=== PATIENT | female | born 1970 | race Caucasian/White ===

== ENCOUNTER 2017-10-14 10:45 | Emergency (ER) | payer BC ==
[2017-10-14 10:59] VITALS: BP 116/85; PULSE 117; TEMP 100; BMI 35.5
[2017-10-14] MEDS ORDERED: KETOROLAC TROMETHAMINE 30 MG/1 ML VIAL IVPUSH ONE (11:28)
[2017-10-14] MEDS ORDERED: SODIUM CHLORIDE 1,000 ML IV STA (11:28)
[2017-10-14] MEDS ORDERED: methylPREDNISolone NA SUCC 125 MG/2 ML VIAL IVPB ONE (11:30)
[2017-10-14] MEDS ORDERED: methylPREDNISolone NA SUCC 40 MG/1 ML VIAL ONE (11:38)
[2017-10-14] MEDS ORDERED: KETOROLAC TROMETHAMINE 30 MG/1 ML VIAL ONE (11:38)
--- NOTE | 2017-10-14 11:45 | PDOC ---
History of Present Illness - General Chief Complaint: Cold Symptoms Stated Complaint: sore throat,fever Time Seen by Provider: 10/14/17 11:08 - History of Present Illness Initial Comments: 10/14/17 11:45 Chief complaint: Sore throat History of present illness: Patient with a sore throat since Wednesday, begun on Z- Alhaji at that time by her primary physician, sore throat has worsened. Pain with eating, though she is tolerating by mouth food and fluids and taking her medication as directed. Saw Dr. Lozano this morning, ENT, who examined the patient and found no sign of peritonsillar or retropharyngeal abscess requiring drainage , referred to the ER for intravenous fluids and steroids. Review of systems: Low-grade fever, pain with swallowing, no drooling, noisy breathing, or shortness of breath. No nausea vomiting or diarrhea, no chest pain , shortness of breath, abdominal pain, no urinary tract symptoms or vaginal bleeding or discharge. Past medical history: Patient is a healthy female, no active medical or surgical problems, but with periodic tonsillitis usually responding well to antibiotics Social/family history no exposure to illness, but recently returned by plane from [place]. 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 No drooling, stridor, wheezing, or other sign of airway compromise HEENT: Mild pharyngeal erythema, no exudate swelling or mass. Neck supple with shotty lymphadenopathy bilaterally, mildly tender Lungs clear CV regular without murmur rub or gallop Abdomen benign Skin clear, no rash, adequate turgor and wet mucous membranes Neurological intact Extremities no CCE Impression: Pharyngitis, probably viral, probably worsened by antibiotics no sign of mass or abscess, no airway compromise Plan: Intravenous fluids, anti-inflammatories, steroids, and observation with further evaluation. Past History - Past Medical History Allergies/Adverse Reactions: Allergies Allergy/AdvReac Type Severity Reaction Status Date / Time No Known Allergies Allergy Verified 10/14/17 10:48 Home Medications: Ambulatory Orders Azithromycin [Zithromax 250mg Tablets -] 250 mg PO DAILY 10/14/17 Ibuprofen 800 mg PO TID #15 tablet 10/14/17 predniSONE [Deltasone -] 40 mg PO DAILY #6 tablet 10/14/17 COPD: No Thyroid Disease: No - Immunization History Td Vaccination: Yes - Suicide/Smoking/Psychosocial Hx Smoking Status: No Smoking History: Never smoked Number of Cigarettes Smoked Daily: 0 Cigars Per Day: 0 Hx Alcohol Use: No Drug/Substance Use Hx: No Substance Use Type: None Hx Substance Use Treatment: No Respiratory Specific PMHX - Complaint Specific PMHX Angina: No *Physical Exam - Vital Signs Last Vital Signs Temp Pulse Resp BP Pulse Ox 100 F H 117 H 18 116/85 99 10/14/17 10:47 10/14/17 10:47 10/14/17 10:47 10/14/17 10:47 10/14/17 10:47 Medical Decision Making - Medical Decision Making 10/14/17 13:21 Patient is much improved. Pain has subsided considerably. She states that she can swallow without difficulty. No respiratory difficulties, drooling, stridor, or wheezing. Discharged fully ambulatory in no pain or other distress to follow- up as directed. *DC/Admit/Observation/Transfer Diagnosis at time of Disposition: Pharyngitis Qualifiers: Pharyngitis/tonsillitis etiology: unspecified etiology Qualified Code(s): J02.9 - Acute pharyngitis, unspecified - Discharge Dispostion Disposition: HOME Condition at time of disposition: Improved Admit: No - Prescriptions Prescriptions: Ibuprofen 800 mg PO TID #15 tablet predniSONE [Deltasone -] 40 mg PO DAILY #6 tablet - Referrals - Patient Instructions Printed Discharge Instructions: DI for Pharyngitis/Tonsillopharyngitis -- Adult Additional Instructions: Finish antibiotics as directed Return to ER immediately if you have increased difficulty swallowing or breathing Otherwise follow-up with your primary physician and ENT doctor. - Post Discharge Activity Forms/Work/School Notes: Back to Work
== END 2017-10-14 13:20 | disposition home or self-care (01) ==
LOC: FER 10:45
PROC: 3E0333Z Introduction of Anti-inflammatory into Peripheral Vein, Percutaneous Approach (ICD-10-PCS; principal; 2017-10-14)
PROC: 3E033GC Introduction of Other Therapeutic Substance into Peripheral Vein, Percutaneous Approach (ICD-10-PCS; 2017-10-14)
PROC: 3E0337Z Introduction of Electrolytic and Water Balance Substance into Peripheral Vein, Percutaneous Approach (ICD-10-PCS; 2017-10-14)
DX: J02.9 Acute pharyngitis, unspecified (principal)
CPT/HCPCS: 99281-25; J7030

== ENCOUNTER 2018-03-19 13:36 | Emergency (ER) | payer BC ==
[2018-03-19 13:40] VITALS: BP 145/74; PULSE 88; TEMP 97.8; BMI 30.7
--- NOTE | 2018-03-19 13:50 | PDOC ---
History of Present Illness - General Chief Complaint: Abscess Boil Stated Complaint: PCP SENT Time Seen by Provider: 03/19/18 13:42 History Source: Patient Exam Limitations: No Limitations - History of Present Illness Initial Comments: 03/19/18 14:07 47-year-old female with no past medical history, including diabetes, presents to emergency department for abscess since Wednesday. She states it did not start as a pimple. She denies fevers, chills, nausea, vomiting, lightheadedness, generalized weakness, chest pain, shortness of breath, discharge from the wound , foul smelling wound. She states that it has not popped or drained fluid. She had something similar x3 months ago, I&D was performed. Allergies - NKDA Past History - Past Medical History Allergies/Adverse Reactions: Allergies Allergy/AdvReac Type Severity Reaction Status Date / Time No Known Allergies Allergy Verified 03/19/18 13:37 Home Medications: Ambulatory Orders Clindamycin [Cleocin -] 450 mg PO Q8H #63 capsule 03/19/18 Clindamycin [Cleocin -] 450 mg PO Q8H #63 capsule 03/19/18 COPD: No Thyroid Disease: No - Immunization History Td Vaccination: Yes - Suicide/Smoking/Psychosocial Hx Smoking Status: No Smoking History: Never smoked Number of Cigarettes Smoked Daily: 0 Cigars Per Day: 0 Hx Alcohol Use: No Drug/Substance Use Hx: No Substance Use Type: None Hx Substance Use Treatment: No Review of Systems - Review of Systems Able to Perform ROS?: Yes Comments:: 03/19/18 14:08 General: denies fever, chills, night sweats, generalized weakness. HEENT: denies sore throat, rhinorrhea, ear pain. Heart: denies chest pain, palpitations, syncope, lower extremity swelling, diaphoresis. Respiratory: denies shortness of breath, cough, sputum production, hemoptysis. Abdomen: denies abdominal pain, nausea, vomiting, diarrhea, constipation, blood in stool. : denies dysuria, increased urinary frequency, hematuria, urinary incontinence , flank pain. Back: denies back pain. Musculoskeletal: denies joint pain, muscle pain, joint swelling. Neurological: denies headache, dizziness, numbness, tingling, weakness. Skin: admits to abscess. denies rash, laceration, abrasion. *Physical Exam - Vital Signs Last Vital Signs Temp Pulse Resp BP Pulse Ox 97.8 F 88 18 145/74 100 03/19/18 13:37 03/19/18 13:37 03/19/18 13:37 03/19/18 13:37 03/19/18 13:37 - Physical Exam Comments: 03/19/18 14:08 Constitutional: Well-nourished, Well-developed, appearing stated age. HEENT: head is normocephalic, atraumatic. EOMI. PERRLA. Neck: supple. Full ROM. Heart: regular rhythm. no murmurs, rubs or gallops. Lungs: clear to auscultation bilaterally. no crackles, rhonchi or wheezing. no stridor. Abdomen: soft, nontender. normal bowel sounds. no rebound, guarding, masses. Extremities: Peripheral pulses intact. No lower extremity edema. Neurological: CN 2-12 grossly intact. Moves all four extremities. Psych: awake, alert, oriented x3. Follows commands. Answers questions appropriately. Skin: 2x2 cm abscess noted to RUQ. 5x6 cm surrounding erythema present. indurated. Ultrasound examination - 1.7x0.76 cm fluid collection noted. Procedures - Incision and Drainage I&D Site: Right: Abdomen Betadine cleansed: Yes Anesthesia: 2% Lidocaine w/ Epi Volume(ml): 2 Blade Size: 11 Attempts: 1 Iodinated Packin in Complications: none Dressing: Yes Medical Decision Making - Medical Decision Making 03/19/18 14:09 47-year-old female with no past medical history, including diabetes, presents to emergency department for abscess since Wednesday. She states he did not start as a pimple. She denies fevers, chills, nausea, vomiting, lightheadedness, generalized weakness, Madhavi, shortness of breath, discharge on the one side, found smiling. She states that it has not popped or drained fluid. She had something similar x3 months ago, I&D was performed. Initial Vital Signs Temp Pulse Resp BP Pulse Ox 97.8 F 88 18 145/74 100 03/19/18 13:37 03/19/18 13:37 03/19/18 13:37 03/19/18 13:37 03/19/18 13:37 Afebrile. No tachycardia. No tachypnea. Mild hypertension. No hypoxia on room air. US examination revealed fluid collection. Will use local anesthetic and I&D. First dose Clindamycin ordered here. 03/19/18 15:13 I&D performed without difficulty. Packing placed. Dressing applied over top. Refer to above for procedural note. Pt will be discharged with prescription for Clindamycin. I spoke with the patient about the importance of taking all of her antibiotic doses, with which she stated she understood. I spoke with the patient about the importance of following up in 3-4 days to be re-evaluated either here at the Emergency Department, or at her PCP's office, Dr. Miles. She stated she understood. I discussed return precautions with the patient, with which she stated she understood. *DC/Admit/Observation/Transfer Diagnosis at time of Disposition: Abscess - Discharge Dispostion Disposition: HOME Condition at time of disposition: Stable Decision to Admit order: No - Prescriptions Prescriptions: Clindamycin [Cleocin -] 450 mg PO Q8H #63 capsule Clindamycin [Cleocin -] 450 mg PO Q8H #63 capsule - Referrals Referrals: Aisha Miles MD [Primary Care Provider] - - Patient Instructions Printed Discharge Instructions: DI for Wound Infection, DI for Incision and Drainage Additional Instructions: You were seen today for abscess. An Incision and Drainage was performed with gauze packing applied inside the wound. Leave the gauze inside the wound until you are re-evaluated. Do not get the wound wet. You received the first dose of the antibiotic, Clindamycin, here in the Emergency Department. I have sent the rest of the prescription to your pharmacy, take as instructed by the label. Take a probiotic over the counter to avoid antibiotic associated diarrhea. Drink lots of clear fluids, like water or gatorade, to stay hydrated. Return to the Emergency Department or see Dr. Miles for re-evaluation of the wound in 3-4 days. Follow up with your primary care doctor within 5 days. Call their office on Wednesday since Wednesday is a holiday, and make an appointment for as soon as available. Your care is not complete until you follow up. Return to the Emergency Department sooner than 3 days for increasing redness, increasing size of wound, fevers, chills, nausea, vomiting, lightheadedness, feeling weak or any other new, worsening or concerning symptoms. - Post Discharge Activity
--- NOTE | 2018-03-19 13:57 | PDOC ---
Attending Attestation - HPI HPI: 03/19/18 14:44 The patient is a 47-year-old female present to the emergency department with an abscess. The patient presents with an abscess localized to the right upper abdomen, non-draining, non-odorous. The patient states this is the 3rd presentation, she had one on her right breast and another one on foot, both abscesses were IND but never cultured. Denies fever, chills, bloody discharge, or paresthesia. Allergies: NKA PCP: Dr. Mlies. - Physicial Exam PE: 03/19/18 14:44 GENERAL: Nontoxic appearing. Awake, alert, and fully oriented, in no acute distress HEAD: No signs of trauma EYES: PERRLA, EOMI, sclera anicteric, conjunctiva clear ENT: Auricles normal inspection, hearing grossly normal, nares patent, oropharynx clear without exudates. Moist mucosa NECK: Normal ROM, supple, no lymphadenopathy, JVD, or masses LUNGS: Breath sounds equal, clear to auscultation bilaterally. No wheezes, and no crackles HEART: Regular rate and rhythm, normal S1 and S2, no murmurs, rubs or gallops ABDOMEN: (+) right upper abdomen abscess, Fluctuant with surrounding erythema, induration surrounding, hot to touch, no draining, will need IND. Soft, nontender, normoactive bowel sounds. No guarding, no rebound. EXTREMITIES: Normal range of motion, no edema. No clubbing or cyanosis. No cords, erythema, or tenderness NEUROLOGICAL: Cranial nerves II through XII grossly intact. Normal speech, normal gait SKIN: Warm, Dry, normal turgor, no rashes or lesions noted. - Medical Decision Making 03/19/18 14:51 Documentation prepared by Jessica Quiñones, acting as medical director occupational health for Bhavani Shine DO. <Jessica Quiñones - Last Filed: 03/19/18 14:51> - Resident Resident Name: Estephania Messer - ED Attending Attestation I have performed the following: I have examined & evaluated the patient, The case was reviewed & discussed with the resident, I agree w/resident's findings & plan, Exceptions are as noted - Medical Decision Making 03/19/18 13:57 I, Dr. Bhavani Shine DO, attest that this document has been prepared under my direction and personally reviewed by me in its entirety. I further attest, that it accurately reflects all work, treatment, procedures and medical decision -making performed by me. 03/19/18 14:36 a/p: 47yo female with abscess to R upper quad -superificial -bedside ultrasound measures 1.7x0.7cm -irreg border -3rd abscess in last year (prior to R breast and then to top of foot) -will need I&D -has surrounding erythema, will send wound culture, will pack wound, will place on clindamycin -Dr. Miles brought pt to ER -pt states ok to discuss case with Dr. Miles - she will follow up with him as an outpt -discussed the plan with Dr. Miles who agrees with the plan 03/19/18 15:10 I&D performed by the resident with packing placed, purulent drainage will send wound culture and start abx stable for d/c to home and follow up with Dr. Miles <Bhavani Shine - Last Filed: 03/19/18 15:11> Discharge Disposition - Discharge Dispostion Decision to Admit order: No <Bhavani Shine - Last Filed: 03/19/18 15:11> - Diagnosis Abscess - Discharge Dispostion Disposition: HOME Condition at time of disposition: Stable - Prescriptions Prescriptions: Clindamycin [Cleocin -] 450 mg PO Q8H #63 capsule - Referrals Referrals: Aisha Miles MD [Primary Care Provider] - - Patient Instructions Printed Discharge Instructions: DI for Wound Infection, DI for Incision and Drainage Additional Instructions: You were seen today for abscess. An Incision and Drainage was performed with gauze packing applied inside the wound. Leave the gauze inside the wound until you are re-evaluated. You recieved the first dose of the antibiotic, Clindamycin, here in the Emergency Department. I have sent the rest of the prescription to your pharmacy, take as instructed by the label. Take a probiotic over the counter to avoid antibiotic associated diarrhea. Drink lots of clear fluids, like water or gatorade, to stay hydrated. Return to the Emergency Department for re-evaluation of the wound in 3 days. Follow up with your primary care doctor within 5 days. Call their office on Wednesday since Wednesday is a holiday, and make an appointment for as soon as available. Your care is not complete until you follow up. Return to the Emergency Department sooner than 3 days for increasing redness, increasing size of wound, fevers, chills, nausea, vomiting, lightheadedness, feeling weak or any other new, worsening or concerning symptoms. - Post Discharge Activity
[2018-03-19] MEDS ORDERED: LIDOCAINE HCL 2% (50ML VIAL) SQ ONE (14:13)
[2018-03-19] MEDS ORDERED: LIDOCAINE 1%/EPI 1:100000 (20 ML MULTI DOSE VIAL) IJ ONE (14:17)
[2018-03-19] MEDS ORDERED: LIDOCAINE 1%/EPI 1:100000 (20 ML MULTI DOSE VIAL) ONE (14:30)
[2018-03-19] MEDS ORDERED: CLINDAMYCIN HCL 150 MG CAPSULE (FP) PO ONE (14:33)
[2018-03-19] MEDS ORDERED: CLINDAMYCIN HCL 150 MG CAPSULE (FP) ONE (14:36)
== END 2018-03-19 15:16 | disposition home or self-care (01) ==
LOC: JER 13:36
PROC: 0J980ZZ Drainage of Abdomen Subcutaneous Tissue and Fascia, Open Approach (ICD-10-PCS; principal; 2018-03-19)
DX: L02.211 Cutaneous abscess of abdominal wall (principal)
CPT/HCPCS: 99282-25

== ENCOUNTER 2018-12-16 01:31 | Inpatient (IN) | payer BC ==
--- NOTE | 2018-12-16 01:43 | PDOC ---
History of Present Illness - General Chief Complaint: Pain Stated Complaint: ABD/BACK PAIN Time Seen by Provider: 12/16/18 01:37 History Source: Patient Exam Limitations: No Limitations - History of Present Illness Initial Comments: 12/16/18 01:58 This is a 48-year-old female who comes in complaining of right flank pain radiating to her right groin times several days. Patient said it is worse today. Patient says some associated nausea and she did vomit times one. Patient said that she went to an urgent care center for the pain a week ago and was told she had a urinary tract infection took antibiotics for UTI. Patient said the pain is intermittent. Patient denies history of similar pain in the past prior to this recent set about solids. Patient denies any fever, chills, diarrhea. Patient said she does have a history of constipation but did have a bowel movement today. Allergies: as per nursing notes Past Medical History: none Social history: Lives with family. No smoking. No alcohol. No illicit drugs. Surgical history: None General: No fevers or chills, no weakness, no weight loss HEENT: No change in vision. No sore throat,. No ear pain CardioVascular: no chest discomfort. No shortness of breath Respiratory:No cough, or wheezing. Gastrointestinal: + nausea, + vomiting, no diarrhea + constipation, No rectal bleeding Genitourinary: No dysuria, hematuria, or frequency Musculoskeletal: No joint or muscle pain or swelling Neurologic: No headache, vertigo, dizziness or loss of consciousness Psychiatric: nor depression Skin: No rashes or easy bruising Endocrine: no increased thirst or abnormal weight change Allergic: no skin or latex allergy All other systems reviewed and normal Exam: General: Well-nourished well-developed individual, no acute distress HEENT: Throat: Normal, tonsils normal, no erythema or exudate Neck: Supple, no meningeal signs, no lymphadenopathy Eyes::Pupils equal reactive and round, extraocular motion intact Chest: Nontender to palpation Cardiac: S1-S2 normal, regular rate and rhythm, no murmurs rubs or gallops Respiratory: Lungs clear to auscultation bilateral Abdomen: Soft, nondistended, normal bowel sounds, there is mild tenderness on palpation right flank and right lower quadrant there is no guarding or rebound. Extremities: Warm, dry, no cyanosis, clubbing, or edema Skin: No rashes Neuro: Alert and oriented x3, CN II - XII intact, nonfocal exam with normal strength, normal sensation, normal reflexes, normal gait, Psych: Normal mood and affect Assessment and plan: This is a 48-year-old female comes in complaining of right flank pain. Workup initiated for probable renal colic including CBC, comp, fluids, pain meds and CAT scan. 12/16/18 03:38 Patient's CAT scan was positive for acute appendicitis. Patient will be admitted under the hospitalist service and likely transfer to [facility] for her appendix Past History - Past Medical History Allergies/Adverse Reactions: Allergies Allergy/AdvReac Type Severity Reaction Status Date / Time No Known Allergies Allergy Verified 03/19/18 13:37 Home Medications: Ambulatory Orders Phentermine HCl 15 mg PO BID 12/16/18 COPD: No Thyroid Disease: No Other medical history: OBESE - Immunization History Td Vaccination: Yes - Suicide/Smoking/Psychosocial Hx Smoking Status: No Smoking History: Never smoked Number of Cigarettes Smoked Daily: 0 Cigars Per Day: 0 Hx Alcohol Use: No Drug/Substance Use Hx: No Substance Use Type: None Hx Substance Use Treatment: No Abd/GI Specific PMHX - Complaint Specific PMHX GERD: No GI Ulcer Disease: No *Physical Exam - Vital Signs Last Vital Signs Temp Pulse Resp BP Pulse Ox 97.7 F 68 16 109/66 100 12/16/18 01:34 12/16/18 01:34 12/16/18 01:34 12/16/18 01:34 12/16/18 01:34 ED Treatment Course - LABORATORY CBC & Chemistry Diagram: 12/16/18 01:56 12/16/18 01:56 *DC/Admit/Observation/Transfer Diagnosis at time of Disposition: Appendicitis Qualifiers: Appendicitis type: acute appendicitis Acute appendicitis type: unspecified acute appendicitis type Qualified Code(s): K35.80 - Unspecified acute appendicitis - Discharge Dispostion Condition at time of disposition: Stable Decision to Admit order: Yes - Referrals - Patient Instructions - Post Discharge Activity
[2018-12-16] MEDS ORDERED: SODIUM CHLORIDE 1,000 ML IV ONE (01:57)
[2018-12-16] MEDS ORDERED: morphine CARPU-JECT 2 MG/1 ML DISP.SYRIN IVPUSH ONE (01:57)
[2018-12-16] MEDS ORDERED: KETOROLAC TROMETHAMINE 30 MG/1 ML VIAL IVPUSH ONE (01:57)
[2018-12-16] MEDS ORDERED: KETOROLAC TROMETHAMINE 30 MG/1 ML VIAL ONE (02:03)
[2018-12-16] MEDS ORDERED: morphine SULFATE 4 MG/ML VIAL ONE (02:37)
[2018-12-16 02:52] LABS: BASO % 0.2 % (0-2.0); EOS % 0.2 % (0-4.5); HEMATOCRIT 39.7 % (32.4-45.2); HEMOGLOBIN 12.3 GM/dL (10.7-15.3); LYMPH % 10.4 % (8-40); MCH 20.5 pg (25.7-33.7); MEAN PLT VOLUME 7.8 fl (7.5-11.1); MONO % 4.6 % (3.8-10.2); NEUT % 84.6 % (42.8-82.8); PLATELET COUNT 398 K/MM3 (134-434); RBC 6.01 M/mm3 (3.60-5.2); RDW 19.1 % (11.6-15.6)
[2018-12-16 02:56] LABS: EPI CELLS 4.5 /HPF (0-5/HPF); HYALINE CASTS 9 /lpf (0-8); URINE APPEARANCE CLEAR; URINE BACTERIA 81.1 /hpf (NEGATIVE); URINE BILIRUBIN NEGATIVE (NEGATIVE); URINE COLOR YELLOW; URINE GLUCOSE (UA) NEGATIVE (NEGATIVE); URINE KETONE 1+ (NEGATIVE); URINE LEUK ESTERASE TRACE (NEGATIVE); URINE NITRITE NEGATIVE (NEGATIVE); URINE PROTEIN NEGATIVE (NEGATIVE); URINE WBC 4 /hpf (0-5)
[2018-12-16 03:36] LABS: ALBUMIN 3.6 g/dl (3.4-5.0); BILIRUBIN,TOTAL 0.4 mg/dL (0.2-1); BLOOD UREA NITROGEN 11.2 mg/dL (7-18); CALCIUM 8.8 mg/dL (8.5-10.1); CREATININE 0.7 mg/dL (0.55-1.3); POTASSIUM 3.8 mmol/L (3.5-5.1); TOT PROT 7.6 g/dl (6.4-8.2)
[2018-12-16] MEDS ORDERED: PIPERACILLIN/TAZOBACTAM 4.5 GM VIAL IVPB ONE (03:40)
[2018-12-16] MEDS ORDERED: PIPERACILLIN/TAZOB 4.5 GM 4.5 GM in DEXTROSE 5%-WATER 100 ML IVPB ONE (03:48)
[2018-12-16 05:43] LABS: ANISOCYTOSIS 1+
--- NOTE | 2018-12-16 09:59 | CONSULT ---
Consult Consult Specialty:: General Surgery Reason for Consultation:: Acute on Chronic Appendicitis - History of Present Illness Chief Complaint: abdominal pain History of Present Illness: 48 yo female with PMH chronic constipation, obesity on pharmacologic weight loss therapy presented to [facility] reporting over the past 3 weeks she has been experiencing worsening, constant lower abdominal pain accompanied with fevers ( tmax 100F), chills, and constipation. She was seen in her PMDs office 2 weeks ago. She has been constipated with RLQ abdominal pain since then which she attributed to contipation. She had one episode of vomiting yesterday. Pain radiates to her lower back. Abdominal CT scan consistent with acute appendicitis with a fecalith with no abscess or rupture. We were called to assess. - History Source History Provided By: Patient, Medical Record Limitations to Obtaining History: No Limitations - Past Medical History Gastrointestinal: Yes: Constipation ...: No Endocrine: Yes: Other (ADRENAL ADENOMA) Additional Medical History: OBESITY - Alcohol/Substance Use Hx Alcohol Use: No History of Substance Use: reports: None - Smoking History Smoking history: Never smoked Have you smoked in the past 12 months: No Aproximately how many cigarettes per day: 0 - Social History ADL: Independent History of Recent Travel: No Home Medications - Allergies Allergies/Adverse Reactions: Allergies Allergy/AdvReac Type Severity Reaction Status Date / Time Penicillins Allergy Mild Itching Verified 12/16/18 11:39 - Home Medications Home Medications: Ambulatory Orders Phentermine HCl 15 mg PO BID 12/16/18 Review of Systems - Review of Systems Constitutional: reports: Loss of Appetite. denies: Chills, Fever Eyes: denies: Blind Spots, Recent Change in Vision HENT: denies: Difficult Swallowing, Throat Pain Neck: denies: Pain on Movement, Stiffness Cardiovascular: denies: Chest Pain, Palpitations Respiratory: denies: Cough, SOB Gastrointestinal: reports: Abdominal Pain, Constipation Genitourinary: denies: Discharge, Dysuria, Flank Pain Breasts: reports: No Symptoms Reported. denies: Pain Musculoskeletal: denies: Muscle Pain, Muscle Weakness Integumentary: denies: Rash, Wound Neurological: denies: Seizure, Syncope Endocrine: reports: Excessive Sweating. denies: Unexplained Weight Gain, Unexplained Weight Loss Hematology/Lymphatic: denies: Easily Bruised, Excessive Bleeding Psychiatric: denies: Anxiety, Depression Physical Exam Vital Signs: Vital Signs Temperature 99.3 F 12/16/18 09:56 Pulse Rate 110 H 12/16/18 09:56 Respiratory Rate 18 12/16/18 08:11 Blood Pressure 115/59 L 12/16/18 08:11 O2 Sat by Pulse Oximetry (%) 98 12/16/18 08:46 Constitutional: Yes: Well Nourished, No Distress, Calm, Obese Eyes: Yes: Conjunctiva Clear, EOM Intact HENT: Yes: Atraumatic, Normocephalic Neck: Yes: Supple, Trachea Midline Cardiovascular: Yes: Regular Rate and Rhythm, S1, S2 Respiratory: Yes: Regular, CTA Bilaterally Gastrointestinal: Yes: Normal Bowel Sounds, Soft, Abdomen, Obese, Tenderness ( rlq), Tenderness, Rebound (+psoaS). No: Distention, Palpable Mass, Rectal Bleeding ...Rectal Exam: Yes: Sphincter Tone Normal. No: Erythema, Hemorrhoids/External , Mass Renal/: No: CVA Tenderness - Left, CVA Tenderness - Right Breast(s): No: Dimpling, Mass, Skin Changes Musculoskeletal: No: Muscle Pain, Muscle Weakness Extremities: No: Cool, Cyanosis Edema: No Peripheral Pulses WNL: Yes Integumentary: No: Jaundice, Rash Neurological: Yes: Alert, Oriented Psychiatric: Yes: Alert, Oriented Labs: CBC, BMP 12/16/18 01:56 12/16/18 01:56 Imaging - Results Cat Scan: Report Reviewed, Image Reviewed (appendicitis with fecolith) Problem List - Problems (1) Appendicitis Assessment/Plan: 48yo female with some medical history presented with acute on chronic appendicitis, confirmed on a CTscan of the abdomen Medical admission NPO and IVF hydration IV antibiotics Adequate analgesia Discussed with patient risks, benefits and alternatives of laparoscopic possible open appendectomy, including but not limited to bleeding, infection, injury to adjacent structures, leak or injury, intraabdominal abscess, incisional hernia, need for further procedures, ; alternatives include antibiotics, delayed or no surgery - risks of this include failure of nonoperative therapy, perforation, sepsis, recurrence, . Patient desires to proceed with operation - will take to OR for above. Informed consent signed for same. Thank you for the opportunity to participate in the care of this patient. Code(s): K37 - UNSPECIFIED APPENDICITIS Qualifiers: Appendicitis type: acute appendicitis Acute appendicitis type: unspecified acute appendicitis type Qualified Code(s): K35.80 - Unspecified acute appendicitis (2) Obesity (BMI 30.0-34.9) Code(s): E66.9 - OBESITY, UNSPECIFIED (3) Constipation Code(s): K59.00 - CONSTIPATION, UNSPECIFIED Qualifiers: Constipation type: chronic idiopathic constipation Qualified Code(s): K59.04 - Chronic idiopathic constipation (4) Leukocytosis Code(s): D72.829 - ELEVATED WHITE BLOOD CELL COUNT, UNSPECIFIED Qualifiers: Leukocytosis type: bandemia Qualified Code(s): D72.825 - Bandemia (5) RLQ abdominal tenderness Code(s): R10.813 - RIGHT LOWER QUADRANT ABDOMINAL TENDERNESS Qualifiers: Presence of rebound: present Qualified Code(s): R10.823 - Right lower quadrant rebound abdominal tenderness (6) Abdominal pain in female patient Code(s): R10.9 - UNSPECIFIED ABDOMINAL PAIN (7) Adrenal adenoma Code(s): D35.00 - BENIGN NEOPLASM OF UNSPECIFIED ADRENAL GLAND Qualifiers: Laterality: left Qualified Code(s): D35.02 - Benign neoplasm of left adrenal gland
--- NOTE | 2018-12-16 10:29 | HP ---
Admitting History and Physical - Primary Care Physician PCP: Aisha Miles - Admission Chief Complaint: Lower abdominal pain History of Present Illness: Patient is a 48 y/o female with no significant past medical history. Patient states that over the past 3 weeks she has been experiencing worsening, constant lower abdominal pain accompanied with fevers (tmax 100F), chills, and constipation. She had one episode of vomiting yesterday. Pain radiates to her lower back. Abdominal CT scan consistent with acute appendicitis with no abscess or rupture. History Source: Patient Limitations to Obtaining History: No Limitations - Past Medical History ...: No - Past Surgical History Past Surgical History: Yes: None - Smoking History Smoking history: Never smoked Have you smoked in the past 12 months: No Aproximately how many cigarettes per day: 0 - Alcohol/Substance Use Hx Alcohol Use: No - Social History ADL: Independent History of Recent Travel: No Home Medications - Allergies Allergies/Adverse Reactions: Allergies Allergy/AdvReac Type Severity Reaction Status Date / Time No Known Allergies Allergy Verified 03/19/18 13:37 - Home Medications Home Medications: Ambulatory Orders Phentermine HCl 15 mg PO BID 12/16/18 Review of Systems - Review of Systems Constitutional: reports: Weakness Eyes: reports: No Symptoms HENT: reports: No Symptoms Neck: reports: No Symptoms Cardiovascular: reports: No Symptoms Respiratory: reports: No Symptoms Gastrointestinal: reports: Abdominal Pain, Constipation Genitourinary: reports: No Symptoms Breasts: reports: No Symptoms Reported Musculoskeletal: reports: Back Pain Integumentary: reports: No Symptoms Neurological: reports: No Symptoms Endocrine: reports: No Symptoms Hematology/Lymphatic: reports: No Symptoms Psychiatric: reports: No Symptoms Physical Examination Vital Signs: Vital Signs Temperature 99.3 F 12/16/18 09:56 Pulse Rate 110 H 12/16/18 09:56 Respiratory Rate 18 12/16/18 08:11 Blood Pressure 115/59 L 12/16/18 08:11 O2 Sat by Pulse Oximetry (%) 98 12/16/18 08:46 Constitutional: Yes: No Distress, Calm Eyes: Yes: Conjunctiva Clear HENT: Yes: Atraumatic Cardiovascular: Yes: Tachycardia Respiratory: Yes: Regular, CTA Bilaterally Gastrointestinal: Yes: Normal Bowel Sounds, Soft, Tenderness (diffuse) Musculoskeletal: Yes: WNL Extremities: Yes: WNL Edema: No Neurological: Yes: Alert, Oriented Psychiatric: Yes: Alert, Oriented Labs: CBC, BMP 12/16/18 01:56 12/16/18 01:56 Imaging - Results Cat Scan: Report Reviewed Problem List - Problems (1) Adrenal adenoma Assessment/Plan: -renal consult -CT scan shows left adrenal adenoma 1.6 x 1.1cm Code(s): D35.00 - BENIGN NEOPLASM OF UNSPECIFIED ADRENAL GLAND (2) Appendicitis Assessment/Plan: -Surgery on board -NPO for surgery this afternoon -Leukocytosis WBC 22.0 -ID on board -received Zosyn x 1 dose -IV hydration Code(s): K37 - UNSPECIFIED APPENDICITIS Qualifiers: Appendicitis type: acute appendicitis Acute appendicitis type: unspecified acute appendicitis type Qualified Code(s): K35.80 - Unspecified acute appendicitis Assessment/Plan see problem list SCDs
[2018-12-16] MEDS ORDERED: ACETAMINOPHEN 325 MG TABLET (FP) PO PRN ×2 (10:54→15:43)
[2018-12-16] MEDS ORDERED: MORPHINE SULFATE 2 MG/ML VIAL IVPUSH PRN (11:31)
--- NOTE | 2018-12-16 11:38 | CON.ID ---
Consult Consult Specialty:: infectious disease Referred by:: dr fuentes Reason for Consultation:: appendicitis - History of Present Illness Chief Complaint: abdominal pain History of Present Illness: 48 yo female admitted with worsening abdominal pain over the last several weeks she thought she had kidney stones and was trying to drink more fluids no dysuria no hematuria yesterday and nsuea and vomiting today seen in ED ct scan with evidence of appendicits no fevers prior to last night pen allergy - itchy - History Source History Provided By: Patient, Medical Record Limitations to Obtaining History: No Limitations - Past Medical History Gastrointestinal: Yes: Constipation ...: No Endocrine: Yes: Other (ADRENAL ADENOMA) Additional Medical History: OBESITY - Past Surgical History Past Surgical History: Yes: None - Alcohol/Substance Use Hx Alcohol Use: No History of Substance Use: reports: None - Smoking History Smoking history: Never smoked Have you smoked in the past 12 months: No Aproximately how many cigarettes per day: 0 - Social History Usual Living Arrangement: With Spouse ADL: Independent History of Recent Travel: Yes ([place]) Home Medications - Allergies Allergies/Adverse Reactions: Allergies Allergy/AdvReac Type Severity Reaction Status Date / Time Penicillins Allergy Mild Itching Verified 12/16/18 11:39 - Home Medications Home Medications: Ambulatory Orders Phentermine HCl 15 mg PO BID 12/16/18 Acetaminophen [Tylenol .Regular Strength -] 650 mg PO Q6H PRN tablet 12/19/18 Amox-Tr/K Cl [Augmentin - 500Mg Tablet] 1 tab PO BID #14 tab 12/19/18 Docusate Sodium [Colace -] 100 mg PO TID PRN #60 capsule 12/19/18 metroNIDAZOLE [Flagyl -] 500 mg PO TID #21 tablet 12/19/18 Family Disease History - Family Disease History Family History: Denies Review of Systems - Review of Systems Constitutional: reports: Chills, Fever Eyes: reports: No Symptoms HENT: reports: No Symptoms Neck: reports: No Symptoms Cardiovascular: reports: No Symptoms Respiratory: reports: No Symptoms Gastrointestinal: reports: Nausea, Vomiting. denies: Abdominal Pain Genitourinary: denies: Burning, Discharge Musculoskeletal: reports: No Symptoms Integumentary: reports: No Symptoms Neurological: reports: No Symptoms Physical Exam Vital Signs: Vital Signs Temperature 99.3 F 12/16/18 09:56 Pulse Rate 110 H 12/16/18 09:56 Respiratory Rate 18 12/16/18 08:11 Blood Pressure 115/59 L 12/16/18 08:11 O2 Sat by Pulse Oximetry (%) 98 12/16/18 08:46 Constitutional: Yes: Well Nourished, No Distress Eyes: Yes: Conjunctiva Clear HENT: Yes: Atraumatic, Normocephalic. No: Thrush Neck: Yes: Supple Cardiovascular: Yes: Regular Rate and Rhythm Respiratory: Yes: Regular, Diminished Gastrointestinal: Yes: Normal Bowel Sounds, Soft, Tenderness (RLQ) ...Rectal Exam: Yes: Deferred Renal/: No: CVA Tenderness - Left, CVA Tenderness - Right Musculoskeletal: Yes: WNL Extremities: Yes: WNL Edema: No Psychiatric: Yes: Alert, Oriented Labs: CBC, BMP 12/16/18 01:56 12/16/18 01:56 Imaging - Results Chest X-ray: Report Reviewed Cat Scan: Report Reviewed Problem List - Problems (1) Appendicitis Code(s): K37 - UNSPECIFIED APPENDICITIS Qualifiers: Appendicitis type: acute appendicitis Acute appendicitis type: unspecified acute appendicitis type Qualified Code(s): K35.80 - Unspecified acute appendicitis (2) Leukocytosis Code(s): D72.829 - ELEVATED WHITE BLOOD CELL COUNT, UNSPECIFIED Qualifiers: Leukocytosis type: bandemia Qualified Code(s): D72.825 - Bandemia (3) Penicillin allergy Code(s): Z88.0 - ALLERGY STATUS TO PENICILLIN Assessment/Plan for surgery today would treat with rocephin/flagyl as she is penicillin allergic (itching)
[2018-12-16] MEDS ORDERED: CEFTRIAXONE 2 GM in DEXTROSE 5%-WATER 100 ML IVPB SCH (11:45)
[2018-12-16] MEDS ORDERED: SODIUM CHLORIDE 1,000 ML IV SCH ×2 (11:45→15:43)
[2018-12-16] MEDS ORDERED: DEXTROSE 5%-WATER 100 ML IVPB ONE (12:54)
[2018-12-16 13:24] LABS: URINE RBC 5 /hpf (0-4)
[2018-12-16] MEDS ORDERED: fentaNYL CITRATE 250 MCG/5 ML VIAL ONE (13:50)
--- NOTE | 2018-12-16 13:50 | OP ---
Operative Note - Note: Operative Date: 12/16/18 Pre-Operative Diagnosis: acute on chronic appendicitis with fecolith Operation: laparoscopic appendectomy Findings: necrotic appendix with fecolith Post-Operative Diagnosis: Same as Pre-op Surgeon: Horacio Conde Anesthesiologist/BUG TRIMMER: Lester Mcdaniel Anesthesia: General, Local Specimens Removed: appendix Estimated Blood Loss (mls): 10 Drains, Volume Out (mls): 430 (hernandez ) Fluid Volume Replaced (mls): 1,200 Operative Report Dictated: Yes
[2018-12-16] MEDS ORDERED: ROCURONIUM BROMIDE 50 MG/5 ML SYRINGE ONE (13:51)
[2018-12-16] MEDS ORDERED: SUCCINYLCHOLINE CHLORIDE 200 MG/10 ML SYRINGE ONE (13:51)
[2018-12-16] MEDS ORDERED: EPHEDRINE SULFATE/0.9% NACL/PF 50 MG/10 ML SYRINGE NR ONE (13:51)
[2018-12-16] MEDS ORDERED: PROPOFOL 20 ML ONE ×2 (13:51)
[2018-12-16] MEDS ORDERED: BACITRACIN 15 GM TUBE TOPICAL OINTMENT ONE (13:53)
[2018-12-16] MEDS ORDERED: LIDOCAINE HCL/PF 2% SDV 5ML VIAL ONE (14:09)
[2018-12-16] MEDS ORDERED: NEOSTIGMINE METHYLSULFATE 0.5 MG/ML - 10 ML MDV ONE (14:20)
[2018-12-16] MEDS ORDERED: GLYCOPYRROLATE 0.2 MG/1 ML VIAL ONE (14:20)
[2018-12-16] MEDS ORDERED: DEXAMETHASONE SOD PHOSPHATE 4 MG/1 ML VIAL ONE (14:20)
[2018-12-16] MEDS ORDERED: ACETAMINOPHEN INJECTION 100 ML IVPB ONE (14:28)
[2018-12-16] MEDS ORDERED: BUPIVACAINE HCL/PF 0.5% (5MG/ML) 10 ML VIAL IJ ONE (14:30)
[2018-12-16] MEDS ORDERED: IBUPROFEN 800 MG/8 ML IJ IVPB PRN (14:37)
[2018-12-16] MEDS ORDERED: ONDANSETRON 4 MG/2 ML VIAL IVPUSH PRN (14:37)
[2018-12-16] MEDS ORDERED: LACTATED RINGERS SOLUTION 1,000 ML IV SCH (14:45)
[2018-12-16] MEDS: LACTATED RINGERS SOLUTION 1,000 ML/1,000 ML INFUS.BAG IV SCH (16:55)
[2018-12-16] MEDS ORDERED: INSULIN (NOVOLOG) ASPART 100 UNITS/ML 10ML VIAL ONE (17:20)
[2018-12-16] MEDS: MORPHINE SULFATE 2 MG/ML VIAL IVPUSH PRN (20:01)
[2018-12-17 07:03] LABS: BASO % 0.1 % (0-2.0); HEMATOCRIT 32.2 % (32.4-45.2); HEMOGLOBIN 9.8 GM/dL (10.7-15.3); LYMPH % 7.4 % (8-40); MCH 20.2 pg (25.7-33.7); MCHC 30.4 g/dl (32.0-36.0); MEAN CELL VOLUME 66.6 fl (80-96); MEAN PLT VOLUME 7.4 fl (7.5-11.1); MONO % 4.6 % (3.8-10.2); NEUT % 87.9 % (42.8-82.8); RBC 4.84 M/mm3 (3.60-5.2); RDW 19.1 % (11.6-15.6); WHITE BLOOD COUNT 22.7 K/mm3 (4.0-10.0)
[2018-12-17 07:40] LABS: ALBUMIN 2.5 g/dl (3.4-5.0); BILIRUBIN,TOTAL 0.3 mg/dL (0.2-1); BLOOD UREA NITROGEN 9.8 mg/dL (7-18); CALCIUM 8.2 mg/dL (8.5-10.1); CREATININE 0.6 mg/dL (0.55-1.3); POTASSIUM 3.7 mmol/L (3.5-5.1); TOT PROT 5.7 g/dl (6.4-8.2)
[2018-12-17 08:12] LABS: PLATELET COUNT 298 K/MM3 (134-434)
[2018-12-17] MEDS ORDERED: DEXTROSE 5%-WATER 100 ML IVPB ONE (09:59)
[2018-12-17] MEDS: CEFTRIAXONE 2 GM in DEXTROSE 5%-WATER 100 ML IVPB SCH (10:10)
[2018-12-17 10:51] LABS: ANISOCYTOSIS 2+; MACROCYTOSIS 0; OVALOCYTE 1+; PLATELET ESTIMATE NORMAL
--- NOTE | 2018-12-17 10:58 | PN ---
Progress Note, Physician History of Present Illness: C/O MILD ABDOMINAL DISCOMFORT NO N/V NO BM NO C/O FEVER/ CHILLS TOLERATED CEPHALOSPORIN WBC ELEVATED 22K - Current Medication List Current Medications: Active Medications Acetaminophen (Tylenol -) 650 mg PO Q6H PRN PRN Reason: FEVER Lactated Ringer's (Lactated Ringers Solution) 1,000 ml in 1,000 mls @ 125 mls/ hr IV ASDIR TYRA Last Admin: 12/16/18 16:55 Dose: 0 mls Ceftriaxone Sodium 2 gm/ (Dextrose) 100 mls @ 200 mls/hr IVPB DAILY TYRA; Protocol Last Admin: 12/17/18 10:10 Dose: 200 mls/hr Metronidazole (Flagyl 500mg Premixed Ivpb -) 500 mg in 100 mls @ 100 mls/hr IVPB Q8H-IV TYRA Last Admin: 12/17/18 10:10 Dose: 100 mls/hr Morphine Sulfate (Morphine Sulfate) 2 mg IVPUSH Q6H PRN PRN Reason: PAIN LEVEL 6-10 Last Admin: 12/16/18 20:01 Dose: 2 mg - Objective Vital Signs: Vital Signs Temperature 98.2 F 12/17/18 06:12 Pulse Rate 83 12/17/18 06:12 Respiratory Rate 20 12/17/18 06:12 Blood Pressure 104/61 12/17/18 06:12 O2 Sat by Pulse Oximetry (%) 99 12/16/18 21:00 Constitutional: Yes: No Distress Eyes: Yes: Conjunctiva Clear Cardiovascular: Yes: Regular Rate and Rhythm, S1, S2 Respiratory: Yes: CTA Bilaterally Gastrointestinal: Yes: Normal Bowel Sounds, Soft, Tenderness, Other (MILD RLQ TENDERNESS) Labs: CBC, BMP 12/17/18 06:36 12/17/18 06:36 Assessment/Plan POD#1 APPENDECTOMY LEUKOCYTOSIS PCN ALLERGY CONTINUE EMPIRIC CEFTRIAXONE/ FLAGYL
--- NOTE | 2018-12-17 11:05 | CON.NEP ---
Consult Consult Specialty:: nephrology - History of Present Illness Chief Complaint: abdominal pain History of Present Illness: This is a 48 year old woman who presented with abdominal pain and was found to have appendicitis. She already had a lap appy and feels better. On a CT scan she was discovered to have an adrenal adenoma and nephrology was called. She has no history of hypertension. Has been taking medication for weight loss. - History Source History Provided By: Patient Limitations to Obtaining History: No Limitations - Past Medical History Gastrointestinal: Yes: Constipation ...: No Endocrine: Yes: Other (ADRENAL ADENOMA) Additional Medical History: OBESITY - Past Surgical History Past Surgical History: Yes: None, Appendectomy - Alcohol/Substance Use Hx Alcohol Use: No History of Substance Use: reports: None - Smoking History Smoking history: Never smoked Have you smoked in the past 12 months: No Aproximately how many cigarettes per day: 0 - Social History Usual Living Arrangement: With Spouse ADL: Independent History of Recent Travel: Yes ([place]) Home Medications - Allergies Allergies/Adverse Reactions: Allergies Allergy/AdvReac Type Severity Reaction Status Date / Time Penicillins Allergy Mild Itching Verified 12/16/18 11:39 - Home Medications Home Medications: Ambulatory Orders Phentermine HCl 15 mg PO BID 12/16/18 Review of Systems - Review of Systems Constitutional: reports: No Symptoms Eyes: reports: No Symptoms HENT: reports: No Symptoms Neck: reports: No Symptoms Cardiovascular: reports: No Symptoms Respiratory: reports: No Symptoms Gastrointestinal: reports: Abdominal Pain, Constipation Genitourinary: reports: No Symptoms Breasts: reports: No Symptoms Reported Musculoskeletal: reports: No Symptoms Integumentary: reports: No Symptoms Neurological: reports: No Symptoms Endocrine: reports: No Symptoms Hematology/Lymphatic: reports: No Symptoms Psychiatric: reports: No Symptoms Nephrology Consult - Height Height: 5 ft 1 in - Weight Weight: 178 lb 8 oz - BMI Body Mass Index (BMI): 33.7 - Lab Results CBC,BMP: CBC, BMP 12/17/18 06:36 12/17/18 06:36 Anion Gap: Anion Gap Anion Gap 8 MMOL/L (8-16) 12/17/18 06:36 - Imaging Cat Scan: Report Reviewed - Physical Examination Vital Signs: Vital Signs Temperature 98.2 F 12/17/18 06:12 Pulse Rate 83 12/17/18 06:12 Respiratory Rate 20 12/17/18 06:12 Blood Pressure 104/61 12/17/18 06:12 O2 Sat by Pulse Oximetry (%) 99 12/16/18 21:00 Constitutional: Yes: Well Nourished, No Distress, Calm Eyes: Yes: Conjunctiva Clear, EOM Intact HENT: Yes: Atraumatic, Normocephalic Neck: Yes: Supple, Trachea Midline Cardiovascular: Yes: Regular Rate and Rhythm Respiratory: Yes: CTA Bilaterally Gastrointestinal: Yes: Soft Musculoskeletal: Yes: WNL Extremities: Yes: WNL Edema: No Integumentary: Yes: WNL Wound/Incision: Yes: Clean/Dry, Well Approximated Neurological: Yes: Alert, Oriented Psychiatric: Yes: Alert, Oriented Assessment/Plan IMPRESSION suspect pt has a benign mass especially since its small. It does have a higher attenuation than expected which makes it necessary to have further studies PLAN would order mri as suggested by radiology though this can be done as outpatient after she heals from recent surgery MV
[2018-12-17 11:06] VITALS: BMI 33.7
--- NOTE | 2018-12-17 12:27 | PN ---
Progress Note, Physician Chief Complaint: Appendicitis History of Present Illness: NAD in bed family at bedside No flatus or BM yet - Current Medication List Current Medications: Active Medications Acetaminophen (Tylenol -) 650 mg PO Q6H PRN PRN Reason: FEVER Lactated Ringer's (Lactated Ringers Solution) 1,000 ml in 1,000 mls @ 125 mls/ hr IV ASDIR TYRA Last Admin: 12/16/18 16:55 Dose: 0 mls Ceftriaxone Sodium 2 gm/ (Dextrose) 100 mls @ 200 mls/hr IVPB DAILY TRYA; Protocol Last Admin: 12/17/18 10:10 Dose: 200 mls/hr Metronidazole (Flagyl 500mg Premixed Ivpb -) 500 mg in 100 mls @ 100 mls/hr IVPB Q8H-IV TYRA Last Admin: 12/17/18 10:10 Dose: 100 mls/hr Morphine Sulfate (Morphine Sulfate) 2 mg IVPUSH Q6H PRN PRN Reason: PAIN LEVEL 6-10 Last Admin: 12/16/18 20:01 Dose: 2 mg - Objective Vital Signs: Vital Signs Temperature 98.2 F 12/17/18 06:12 Pulse Rate 83 12/17/18 10:00 Respiratory Rate 20 12/17/18 10:00 Blood Pressure 117/65 12/17/18 10:00 O2 Sat by Pulse Oximetry (%) 99 12/16/18 21:00 Constitutional: Yes: Well Nourished, No Distress, Calm Cardiovascular: Yes: Regular Rate and Rhythm Respiratory: Yes: Regular Gastrointestinal: Yes: Normal Bowel Sounds, Soft, Tenderness (incisional) Genitourinary: Yes: WNL Musculoskeletal: Yes: WNL Extremities: Yes: WNL Edema: No Peripheral Pulses WNL: Yes Neurological: Yes: Alert, Oriented Psychiatric: Yes: Alert, Oriented Labs: CBC, BMP 12/17/18 06:36 12/17/18 06:36 Problem List - Problems (1) Appendicitis Assessment/Plan: -S/P appendectomy -On IV abx -ID on board -WBC still at 22 K -afebrile -tolerating po liquids -Encouraged to ambulate Code(s): K37 - UNSPECIFIED APPENDICITIS Qualifiers: Appendicitis type: acute appendicitis Acute appendicitis type: unspecified acute appendicitis type Qualified Code(s): K35.80 - Unspecified acute appendicitis (2) Leukocytosis Assessment/Plan: -07/16 to appendicitis -Repeat CBC in am -S/P appendectomy -On IV abx -ID on board -WBC still at 22 K -afebrile -tolerating po liquids -Encouraged to ambulate Code(s): D72.829 - ELEVATED WHITE BLOOD CELL COUNT, UNSPECIFIED Qualifiers: Leukocytosis type: bandemia Qualified Code(s): D72.825 - Bandemia Assessment/Plan see problem list
--- NOTE | 2018-12-17 14:51 | EKG ---
Test Reason : Blood Pressure : / mmHG Vent. Rate : 097 BPM Atrial Rate : 097 BPM P-R Int : 108 ms QRS Dur : 074 ms QT Int : 364 ms P-R-T Axes : 025 042 048 degrees QTc Int : 462 ms POOR DATA QUALITY, INTERPRETATION MAY BE ADVERSELY AFFECTED SINUS RHYTHM WITH SHORT TN NONSPECIFIC T WAVE ABNORMALITY ABNORMAL ECG NO PREVIOUS ECGS AVAILABLE Confirmed by MD MAIA, RUDDY ([id number]) on 12/17/2018 2:50:55 PM Referred By: DR ADAME Confirmed By:RUDDY CARVALHO MD
--- NOTE | 2018-12-17 16:56 | PN ---
Progress Note, Physician History of Present Illness: 48 yo female with PMH chronic constipation, obesity on pharmacologic weight loss therapy presented to [facility] ER reporting over the past 3 weeks she has been experiencing worsening, constant lower abdominal pain accompanied with fevers ( tmax 100F), chills, and constipation. She has been stable since surgery. - Current Medication List Current Medications: Active Medications Acetaminophen (Tylenol -) 650 mg PO Q6H PRN PRN Reason: FEVER Lactated Ringer's (Lactated Ringers Solution) 1,000 ml in 1,000 mls @ 125 mls/ hr IV ASDIR TYRA Last Admin: 12/16/18 16:55 Dose: 0 mls Ceftriaxone Sodium 2 gm/ (Dextrose) 100 mls @ 200 mls/hr IVPB DAILY TYRA; Protocol Last Admin: 12/17/18 10:10 Dose: 200 mls/hr Metronidazole (Flagyl 500mg Premixed Ivpb -) 500 mg in 100 mls @ 100 mls/hr IVPB Q8H-IV TYRA Last Admin: 12/17/18 10:10 Dose: 100 mls/hr Morphine Sulfate (Morphine Sulfate) 2 mg IVPUSH Q6H PRN PRN Reason: PAIN LEVEL 6-10 Last Admin: 12/16/18 20:01 Dose: 2 mg - Objective Vital Signs: Vital Signs Temperature 97.5 F L 12/17/18 14:34 Pulse Rate 87 12/17/18 14:34 Respiratory Rate 20 12/17/18 10:00 Blood Pressure 113/69 12/17/18 14:34 O2 Sat by Pulse Oximetry (%) 99 12/16/18 21:00 Vital Signs Period Temp Pulse Resp BP Sys/Pike Pulse Ox Last 24 Hr 97.5 F-98.7 F 75-89 18-20 101-117/58-69 96-99 Intake & Output 12/17/18 12/17/18 12/17/18 07:59 15:59 23:59 Intake Total 1850 1740 Output Total 250 Balance 1600 1740 Weight 178 lb 8 oz 178 lb 8 oz Intake: IV 1500 1100 LACTATED RINGERS SOLUTION 1100 1,000 ml In 1,000 ml @ 125 mls/hr IV ASDIR TYRA Rx#:[id number] Lactated Ringers Solution 1500 1,000 ml @ 125 mls/hr IV ASDIR TYRA Rx#: [id number] IVPB 100 200 Oral 250 440 Output: Urine 250 Void 250 Other: Voiding Method Toilet # Unmeasured Voids Void 1 Bowel Movement No Height 5 ft 1 in Body Mass Index (BMI) 33.7 Weight Measurement Method Built in [facility] Constitutional: Yes: Well Nourished, No Distress, Calm Eyes: Yes: Conjunctiva Clear, EOM Intact HENT: Yes: Atraumatic, Normocephalic Neck: Yes: Supple, Trachea Midline Cardiovascular: Yes: Regular Rate and Rhythm, S1, S2 Respiratory: Yes: Regular, CTA Bilaterally Gastrointestinal: Yes: Normal Bowel Sounds, Soft, Abdomen, Obese ...Rectal Exam: Yes: Deferred Genitourinary: No: CVA Tenderness - Left, CVA Tenderness - Right Breast(s): No: Mass, Skin Changes Musculoskeletal: No: Muscle Pain, Muscle Weakness Extremities: No: Cool, Cyanosis Edema: No Peripheral Pulses WNL: Yes Peripheral Pulses: Left Radial: 2+, Right Radial: 2+, Left Doralis Pedis: 2+, Right Dorsalis Pedis: 2+, Left Femoral: 2+, Right Femoral: 2+ Integumentary: No: Incision, Jaundice, Rash Wound/Incision: Yes: Clean/Dry, Well Approximated Neurological: Yes: Alert, Oriented Psychiatric: Yes: Alert, Oriented Labs: CBC, BMP /11/30 06:36 12/17/18 06:36 Problem List - Problems (1) Appendicitis Assessment/Plan: 48yo female with some medical history presented with acute on chronic appendicitis, confirmed on a CTscan of the abdomen POD#1 s/p laparoscopic appendectomy for a gangrenous appendix. She will require servral days of IV antibiotics Diets IVF hydration IV antibiotics ID consult Adequate analgesia encourage IS Early ambulation will follow Code(s): K37 - UNSPECIFIED APPENDICITIS Qualifiers: Appendicitis type: acute appendicitis Acute appendicitis type: unspecified acute appendicitis type Qualified Code(s): K35.80 - Unspecified acute appendicitis (2) Obesity (BMI 30.0-34.9) Code(s): E66.9 - OBESITY, UNSPECIFIED (3) Constipation Code(s): K59.00 - CONSTIPATION, UNSPECIFIED Qualifiers: Constipation type: chronic idiopathic constipation Qualified Code(s): K59.04 - Chronic idiopathic constipation (4) Leukocytosis Code(s): D72.829 - ELEVATED WHITE BLOOD CELL COUNT, UNSPECIFIED Qualifiers: Leukocytosis type: bandemia Qualified Code(s): D72.825 - Bandemia (5) RLQ abdominal tenderness Code(s): R10.813 - RIGHT LOWER QUADRANT ABDOMINAL TENDERNESS Qualifiers: Presence of rebound: present Qualified Code(s): R10.823 - Right lower quadrant rebound abdominal tenderness (6) Abdominal pain in female patient Code(s): R10.9 - UNSPECIFIED ABDOMINAL PAIN (7) Adrenal adenoma Code(s): D35.00 - BENIGN NEOPLASM OF UNSPECIFIED ADRENAL GLAND Qualifiers: Laterality: left Qualified Code(s): D35.02 - Benign neoplasm of left adrenal gland
[2018-12-17] MEDS: LACTATED RINGERS SOLUTION 1,000 ML/1,000 ML INFUS.BAG IV SCH (17:03)
[2018-12-17] MEDS: MORPHINE SULFATE 2 MG/ML VIAL IVPUSH PRN (23:10)
[2018-12-18] MEDS: LACTATED RINGERS SOLUTION 1,000 ML/1,000 ML INFUS.BAG IV SCH (01:59)
[2018-12-18 07:48] LABS: ALBUMIN 2.5 g/dl (3.4-5.0); BILIRUBIN,TOTAL 0.2 mg/dL (0.2-1); BLOOD UREA NITROGEN 10.7 mg/dL (7-18); CALCIUM 7.9 mg/dL (8.5-10.1); CREATININE 0.7 mg/dL (0.55-1.3); POTASSIUM 3.7 mmol/L (3.5-5.1); TOT PROT 5.8 g/dl (6.4-8.2)
[2018-12-18 07:56] LABS: BASO % 0.5 % (0-2.0); EOS % 1.1 % (0-4.5); HEMOGLOBIN 10.1 GM/dL (10.7-15.3); LYMPH % 29.5 % (8-40); MCH 20.5 pg (25.7-33.7); MCHC 30.7 g/dl (32.0-36.0); MEAN CELL VOLUME 66.8 fl (80-96); MEAN PLT VOLUME 7.8 fl (7.5-11.1); MONO % 6.6 % (3.8-10.2); NEUT % 62.3 % (42.8-82.8); PLATELET COUNT 302 K/MM3 (134-434); RBC 4.94 M/mm3 (3.60-5.2); RDW 19.2 % (11.6-15.6); WHITE BLOOD COUNT 12.9 K/mm3 (4.0-10.0)
[2018-12-18] MEDS ORDERED: DEXTROSE 5%-WATER 100 ML IVPB ONE (09:49)
[2018-12-18] MEDS: CEFTRIAXONE 2 GM in DEXTROSE 5%-WATER 100 ML IVPB SCH (09:56)
--- NOTE | 2018-12-18 10:46 | PN ---
Progress Note (short form) - Note Progress Note: RENAL Pt is awake and alert she is better Last Vital Signs Temp Pulse Resp BP Pulse Ox 98.2 F 96 H 20 121/87 99 12/18/18 06:00 12/18/18 10:00 12/18/18 10:00 12/18/18 10:00 12/16/18 21:00 lungs clear cvs s1s2 rr abd soft ext no edema neuro a+ox3 CBC, BMP 12/18/18 06:45 12/18/18 06:45 Current Medications Generic Name Dose Route Start Last Admin Trade Name Freq PRN Reason Stop Dose Admin Acetaminophen 650 mg 12/16/18 15:43 Tylenol - PO Q6H PRN FEVER Lactated Ringer's 1,000 ml in 1,000 mls @ 125 mls/hr 12/16/18 15:45 12/18/18 01:59 Lactated Ringers Solution IV 125 mls/hr ASDIR TYRA Administration Ceftriaxone Sodium 2 gm/ 100 mls @ 200 mls/hr 12/17/18 10:00 12/18/18 09:56 Dextrose IVPB 200 mls/hr DAILY TYRA Administration Protocol Metronidazole 500 mg in 100 mls @ 100 mls/hr 12/16/18 18:00 12/18/18 09:57 Flagyl 500mg Premixed Ivpb - IVPB 100 mls/hr Q8H-IV TYRA Administration Morphine Sulfate 2 mg 12/16/18 15:43 12/17/18 23:10 Morphine Sulfate IVPUSH 2 mg Q6H PRN Administration PAIN LEVEL 6-10 IMPRESSION 48 year old woman s/p appendectomy who had an adrenal adenoma diagnosed by ct scan PLAN will need MRI can be done as outpatient will need outpatient follow up MV
--- NOTE | 2018-12-18 10:58 | PN ---
Progress Note, Physician Chief Complaint: Appendicitis History of Present Illness: NAD in bed WBC improved afebrile self ambulatory - Current Medication List Current Medications: Active Medications Acetaminophen (Tylenol -) 650 mg PO Q6H PRN PRN Reason: FEVER Lactated Ringer's (Lactated Ringers Solution) 1,000 ml in 1,000 mls @ 125 mls/ hr IV ASDIR TYRA Last Admin: 12/18/18 01:59 Dose: 125 mls/hr Ceftriaxone Sodium 2 gm/ (Dextrose) 100 mls @ 200 mls/hr IVPB DAILY TYRA; Protocol Last Admin: 12/18/18 09:56 Dose: 200 mls/hr Metronidazole (Flagyl 500mg Premixed Ivpb -) 500 mg in 100 mls @ 100 mls/hr IVPB Q8H-IV TYRA Last Admin: 12/18/18 09:57 Dose: 100 mls/hr Morphine Sulfate (Morphine Sulfate) 2 mg IVPUSH Q6H PRN PRN Reason: PAIN LEVEL 6-10 Last Admin: 12/17/18 23:10 Dose: 2 mg - Objective Vital Signs: Vital Signs Temperature 98.2 F 12/18/18 06:00 Pulse Rate 96 H 12/18/18 10:00 Respiratory Rate 20 12/18/18 10:00 Blood Pressure 121/87 12/18/18 10:00 O2 Sat by Pulse Oximetry (%) 99 12/16/18 21:00 Constitutional: Yes: Well Nourished, No Distress, Calm Cardiovascular: Yes: Regular Rate and Rhythm Respiratory: Yes: Regular Gastrointestinal: Yes: Normal Bowel Sounds, Soft, Tenderness (incisional) Genitourinary: Yes: WNL Musculoskeletal: Yes: WNL Extremities: Yes: WNL Edema: No Peripheral Pulses WNL: Yes Neurological: Yes: Alert, Oriented Psychiatric: Yes: Alert, Oriented Labs: CBC, BMP 12/18/18 06:45 12/18/18 06:45 Problem List - Problems (1) Appendicitis Assessment/Plan: -S/P appendectomy -On IV abx -ID on board -WBC still at 22 K -afebrile -tolerating po liquids, eating better -Encouraged to ambulate -D/C IVF Code(s): K37 - UNSPECIFIED APPENDICITIS Qualifiers: Appendicitis type: acute appendicitis Acute appendicitis type: unspecified acute appendicitis type Qualified Code(s): K35.80 - Unspecified acute appendicitis (2) Leukocytosis Assessment/Plan: -2/2 to appendicitis -Repeat CBC in am -S/P appendectomy -On IV abx -ID on board -WBC trending down -afebrile -tolerating po liquids -Encouraged to ambulate Code(s): D72.829 - ELEVATED WHITE BLOOD CELL COUNT, UNSPECIFIED Qualifiers: Leukocytosis type: bandemia Qualified Code(s): D72.825 - Bandemia Assessment/Plan see problem list
[2018-12-18] MEDS: DOCUSATE SODIUM 100 MG CAPSULE (FP) PO SCH ×2 (13:37→21:12)
--- NOTE | 2018-12-18 17:57 | PN ---
Progress Note, Physician Chief Complaint: abdominal pain History of Present Illness: 48 yo female with PMH chronic constipation, obesity on pharmacologic weight loss therapy presented to [facility] ER reporting over the past 3 weeks she has been experiencing worsening, constant lower abdominal pain accompanied with fevers ( tmax 100F), chills, and constipation. She has been stable since surgery. - Current Medication List Current Medications: Active Medications Acetaminophen (Tylenol -) 650 mg PO Q6H PRN PRN Reason: FEVER Docusate Sodium (Colace -) 100 mg PO TID TYRA Last Admin: 12/18/18 13:37 Dose: 100 mg Ceftriaxone Sodium 2 gm/ (Dextrose) 100 mls @ 200 mls/hr IVPB DAILY TYRA; Protocol Last Admin: 12/18/18 09:56 Dose: 200 mls/hr Metronidazole (Flagyl 500mg Premixed Ivpb -) 500 mg in 100 mls @ 100 mls/hr IVPB Q8H-IV TYRA Last Admin: 12/18/18 17:27 Dose: 100 mls/hr Morphine Sulfate (Morphine Sulfate) 2 mg IVPUSH Q6H PRN PRN Reason: PAIN LEVEL 6-10 Last Admin: 12/17/18 23:10 Dose: 2 mg - Objective Vital Signs: Vital Signs Temperature 97.6 F 12/18/18 14:00 Pulse Rate 78 12/18/18 14:00 Respiratory Rate 20 12/18/18 14:00 Blood Pressure 121/72 12/18/18 14:00 O2 Sat by Pulse Oximetry (%) 99 12/16/18 21:00 Constitutional: Yes: Well Nourished, No Distress, Calm Eyes: Yes: Conjunctiva Clear, EOM Intact HENT: Yes: Atraumatic, Normocephalic Neck: Yes: Supple, Trachea Midline Cardiovascular: Yes: Regular Rate and Rhythm, S1, S2 Respiratory: Yes: Regular, CTA Bilaterally Gastrointestinal: Yes: Normal Bowel Sounds, Soft, Tenderness (incsional). No: Distention ...Rectal Exam: Yes: Deferred Genitourinary: No: CVA Tenderness - Left, CVA Tenderness - Right Breast(s): No: Mass, Skin Changes Musculoskeletal: No: Muscle Pain, Muscle Weakness Extremities: No: Cool, Cyanosis Edema: No Peripheral Pulses WNL: Yes Peripheral Pulses: Left Radial: 2+, Right Radial: 2+, Left Doralis Pedis: 2+, Right Dorsalis Pedis: 2+, Left Femoral: 2+, Right Femoral: 2+ Integumentary: No: Rash, Skin Tear, Tattoos Wound/Incision: Yes: Clean/Dry, Well Approximated, Other (dermabond) Neurological: Yes: Alert, Oriented Psychiatric: Yes: Alert, Oriented Labs: CBC, BMP 12/18/18 06:45 12/18/18 06:45 Problem List - Problems (1) Appendicitis Assessment/Plan: 48yo female with some medical history presented with acute on chronic appendicitis, confirmed on a CTscan of the abdomen POD#2 s/p laparoscopic appendectomy for a gangrenous appendix. She will require servral days of IV antibiotics Diets IVF hydration IV antibiotics ID consult Adequate analgesia encourage IS Early ambulation will follow Code(s): K37 - UNSPECIFIED APPENDICITIS Qualifiers: Appendicitis type: acute appendicitis Acute appendicitis type: unspecified acute appendicitis type Qualified Code(s): K35.80 - Unspecified acute appendicitis (2) Obesity (BMI 30.0-34.9) Code(s): E66.9 - OBESITY, UNSPECIFIED (3) Constipation Code(s): K59.00 - CONSTIPATION, UNSPECIFIED Qualifiers: Constipation type: chronic idiopathic constipation Qualified Code(s): K59.04 - Chronic idiopathic constipation (4) Leukocytosis Code(s): D72.829 - ELEVATED WHITE BLOOD CELL COUNT, UNSPECIFIED Qualifiers: Leukocytosis type: bandemia Qualified Code(s): D72.825 - Bandemia (5) RLQ abdominal tenderness Code(s): R10.813 - RIGHT LOWER QUADRANT ABDOMINAL TENDERNESS Qualifiers: Presence of rebound: present Qualified Code(s): R10.823 - Right lower quadrant rebound abdominal tenderness (6) Abdominal pain in female patient Code(s): R10.9 - UNSPECIFIED ABDOMINAL PAIN (7) Adrenal adenoma Code(s): D35.00 - BENIGN NEOPLASM OF UNSPECIFIED ADRENAL GLAND Qualifiers: Laterality: left Qualified Code(s): D35.02 - Benign neoplasm of left adrenal gland
[2018-12-19] MEDS: DOCUSATE SODIUM 100 MG CAPSULE (FP) PO SCH ×3 (06:19→21:27)
[2018-12-19 07:40] LABS: BASO % 0.5 % (0-2.0); EOS % 2.2 % (0-4.5); HEMATOCRIT 36.3 % (32.4-45.2); HEMOGLOBIN 11.2 GM/dL (10.7-15.3); LYMPH % 26.2 % (8-40); MCH 20.7 pg (25.7-33.7); MCHC 30.9 g/dl (32.0-36.0); MEAN PLT VOLUME 7.8 fl (7.5-11.1); MONO % 5.4 % (3.8-10.2); NEUT % 65.7 % (42.8-82.8); PLATELET COUNT 338 K/MM3 (134-434); RBC 5.42 M/mm3 (3.60-5.2); RDW 19.1 % (11.6-15.6); WHITE BLOOD COUNT 11.8 K/mm3 (4.0-10.0)
--- NOTE | 2018-12-19 07:55 | DS ---
Physical Examination Vital Signs: Vital Signs Temperature 98.3 F 12/19/18 06:00 Pulse Rate 82 12/19/18 06:00 Respiratory Rate 20 12/19/18 06:00 Blood Pressure 113/73 12/19/18 06:00 O2 Sat by Pulse Oximetry (%) 99 12/16/18 21:00 Findings/Remarks: AWAKE ALERT DENIES CHEST PAIN OR SOB NO N/V HAS NOT HAD BOWEL MOVEMENT YET NO FEVERS OR CHILLS TOLERATING MEALS Constitutional: Yes: No Distress Eyes: Yes: WNL HENT: Yes: WNL Neck: Yes: WNL Cardiovascular: Yes: Regular Rate and Rhythm Respiratory: Yes: WNL Gastrointestinal: Yes: Soft, Tenderness Renal/: Yes: WNL Musculoskeletal: Yes: WNL Extremities: Yes: WNL Edema: No Peripheral Pulses WNL: Yes Integumentary: Yes: WNL Wound/Incision: Yes: Clean/Dry Neurological: Yes: WNL ...Motor Strength: WNL Psychiatric: Yes: WNL Labs: CBC, BMP 12/18/18 06:45 Discharge Summary Reason For Visit: ABD/BACK PAIN Current Active Problems Abdominal pain in female patient (Acute) Adrenal adenoma (Acute) Appendicitis (Acute) Constipation (Acute) Leukocytosis (Acute) Obesity (BMI 30.0-34.9) (Acute) RLQ abdominal tenderness (Acute) Procedures: Principal: APPENDECTOMY Hospital Course: ADMITTED FOR ACUTE APPENDICITIS, TREATED WITH IV ABX, LAPROSCOPIC APPENDECTOMY. INCIDENTAL CT SCAN OF ABDOMEN FOUND TO HAVE ADRENAL ADENOMA. WILL NEED MRI OF ABDOMEN OUTPATIENT Condition: Improved - Instructions Diet, Activity, Other Instructions: Postoperative instructions: You had a laparoscopic appendectomy on 12/16/[address] Horacio Conde of [facility]. Activity: Resume your usual activities gradually, but no heavy exertion or lifting more than 10-15 pounds for 1 month. Remove dressings 48 hours after surgery; sticky tapes underneath will fall off by themselves. You may shower daily starting then, just pat the incision areas dry. No bath or swimming until skin incisions have healed. Eat lightly at first, but advance to your usual diet as tolerated. Pain: For pain, you may use and alternate Tylenol (acetaminophen) 1-2 pills and/ or ibuprofen 200 mg (1-3 pills) every 6 hours each as needed; this means that you can take one OR the other at 3-hour intervals. If you are prescribed a Tylenol/narcotic combination for severe pain, use it instead of plain Tylenol as needed and switch back when your pain starts decreasing. Do not take more than 4000mg of acetaminophen in a day. Take medications as prescribed or indicated on the labeling. Follow-up: Call Dr. Conde' office at [phone] to make your postop appointment (Wednesday in approximately 2 weeks after surgery). Clinic is held in the [facility] on the first floor of [facility]. Call the office if you have: * increasing pain not responsive to pain medication * fever of 101F or higher * vomiting * unusual or increasing bleeding or drainage from wounds * increasing redness or swelling at wound sites * inability to urinate Also, see your primary medical doctor within 1-[address] NINO IN 1-2 WEEKS FOR FOLLOW UP AND OUTPATIENT MRI OF ABDOMEN FOLLOW UP ADRENAL ADENOMA Disposition: HOME - Home Medications Comprehensive Discharge Medication List: Ambulatory Orders Phentermine HCl 15 mg PO BID 12/16/18
[2018-12-19] MEDS: CEFTRIAXONE 2 GM in DEXTROSE 5%-WATER 100 ML IVPB SCH (09:46)
[2018-12-19] MEDS ORDERED: DEXTROSE 5%-WATER 100 ML IVPB ONE (09:47)
[2018-12-19] MEDS ORDERED: MAGNESIUM HYDROX 2400MG/30ML ORAL SUSPENSION 30 ML CUP PO ONE (10:30)
[2018-12-19 11:53] LABS: ANISOCYTOSIS 2+; MACROCYTOSIS 0; OVALOCYTE 1+; PLATELET ESTIMATE NORMAL; TARGET CELLS 1+; TEAR DROP CELLS 1+
--- NOTE | 2018-12-19 13:17 | PN ---
Progress Note, Physician History of Present Illness: Pt seen and examined at bedside. She is awake and alert. She denies shortness of breath. She denies abd pain. - Current Medication List Current Medications: Active Medications Acetaminophen (Tylenol -) 650 mg PO Q6H PRN PRN Reason: FEVER Docusate Sodium (Colace -) 100 mg PO TID TYRA Last Admin: 12/19/18 06:19 Dose: 100 mg Ceftriaxone Sodium 2 gm/ (Dextrose) 100 mls @ 200 mls/hr IVPB DAILY TYRA; Protocol Last Admin: 12/19/18 09:46 Dose: 200 mls/hr Metronidazole (Flagyl 500mg Premixed Ivpb -) 500 mg in 100 mls @ 100 mls/hr IVPB Q8H-IV TYRA Last Admin: 12/19/18 09:46 Dose: 100 mls/hr Morphine Sulfate (Morphine Sulfate) 2 mg IVPUSH Q6H PRN PRN Reason: PAIN LEVEL 6-10 Last Admin: 12/17/18 23:10 Dose: 2 mg - Objective Vital Signs: Vital Signs Temperature 98.3 F 12/19/18 06:00 Pulse Rate 82 12/19/18 06:00 Respiratory Rate 18 12/19/18 09:00 Blood Pressure 113/73 12/19/18 06:00 O2 Sat by Pulse Oximetry (%) 99 12/16/18 21:00 Constitutional: Yes: Calm Eyes: Yes: Conjunctiva Clear HENT: Yes: Atraumatic Cardiovascular: Yes: S1, S2 Respiratory: Yes: CTA Bilaterally Gastrointestinal: Yes: Soft, Other (dressing in place) Musculoskeletal: Yes: WNL Edema: No Neurological: Yes: Oriented Psychiatric: Yes: Oriented Labs: CBC, BMP 12/19/18 05:33 12/18/18 06:45 Problem List - Problems (1) Adrenal adenoma Code(s): D35.00 - BENIGN NEOPLASM OF UNSPECIFIED ADRENAL GLAND Qualifiers: Laterality: left Qualified Code(s): D35.02 - Benign neoplasm of left adrenal gland (2) Appendicitis Code(s): K37 - UNSPECIFIED APPENDICITIS Qualifiers: Appendicitis type: acute appendicitis Acute appendicitis type: unspecified acute appendicitis type Qualified Code(s): K35.80 - Unspecified acute appendicitis Assessment/Plan Current Medications Generic Name Dose Route Start Last Admin Trade Name Freq PRN Reason Stop Dose Admin Acetaminophen 650 mg 12/16/18 15:43 Tylenol - PO Q6H PRN FEVER Docusate Sodium 100 mg 12/18/18 14:00 12/19/18 06:19 Colace - PO 100 mg TID TYRA Administration Ceftriaxone Sodium 2 gm/ 100 mls @ 200 mls/hr 12/17/18 10:00 12/19/18 09:46 Dextrose IVPB 200 mls/hr DAILY TYRA Administration Protocol Metronidazole 500 mg in 100 mls @ 100 mls/hr 12/16/18 18:00 12/19/18 09:46 Flagyl 500mg Premixed Ivpb - IVPB 100 mls/hr Q8H-IV TYRA Administration Morphine Sulfate 2 mg 12/16/18 15:43 12/17/18 23:10 Morphine Sulfate IVPUSH 2 mg Q6H PRN Administration PAIN LEVEL 6-10 Impression 1. adrenal adenoma 2. appendicitis Plan - MRI as outpt, pt says she will follow up - surgery follow up - no acute change in management - adenoma found on ct scan for appendicitis Dr Weller
--- NOTE | 2018-12-19 14:54 | PN ---
Progress Note (short form) - Note Progress Note: doing well no abdominal pain ambulating Vital Signs Period Temp Pulse Resp BP Sys/Pike Pulse Ox Last 24 Hr 98.0 F-98.3 F 79-82 18-20 111-113/67-73 cor-rrr lungs clear abd soft,nt ext no edema CBC, BMP 12/19/18 05:33 12/18/18 06:45 Microbiology 12/16/18 11:45 Blood - Peripheral Venous Blood Culture - Preliminary NO GROWTH OBTAINED AFTER 72 HOURS, INCUBATION TO CONTINUE FOR 2 DAYS. 12/16/18 11:49 Blood - Peripheral Venous Blood Culture - Preliminary NO GROWTH OBTAINED AFTER 72 HOURS, INCUBATION TO CONTINUE FOR 2 DAYS. 12/16/18 01:55 Urine - Urine Clean Catch Urine Culture - Final NO GROWTH OBTAINED a/p pod #3 s/p appendectomy doing well continue rocephin/flagyl leukocytosis is resolving hopefully home in am Problem List - Problems (1) Appendicitis Code(s): K37 - UNSPECIFIED APPENDICITIS Qualifiers: Appendicitis type: acute appendicitis Acute appendicitis type: unspecified acute appendicitis type Qualified Code(s): K35.80 - Unspecified acute appendicitis (2) Leukocytosis Code(s): D72.829 - ELEVATED WHITE BLOOD CELL COUNT, UNSPECIFIED Qualifiers: Leukocytosis type: bandemia Qualified Code(s): D72.825 - Bandemia (3) Penicillin allergy Code(s): Z88.0 - ALLERGY STATUS TO PENICILLIN
[2018-12-20] MEDS: DOCUSATE SODIUM 100 MG CAPSULE (FP) PO SCH (06:52)
[2018-12-20 07:51] LABS: BASO % 0.6 % (0-2.0); EOS % 2.7 % (0-4.5); HEMATOCRIT 36.7 % (32.4-45.2); HEMOGLOBIN 11.5 GM/dL (10.7-15.3); LYMPH % 32.1 % (8-40); MCH 20.7 pg (25.7-33.7); MCHC 31.3 g/dl (32.0-36.0); MEAN CELL VOLUME 66.1 fl (80-96); MEAN PLT VOLUME 7.5 fl (7.5-11.1); MONO % 6.9 % (3.8-10.2); NEUT % 57.7 % (42.8-82.8); PLATELET COUNT 362 K/MM3 (134-434); RBC 5.55 M/mm3 (3.60-5.2); RDW 18.9 % (11.6-15.6); WHITE BLOOD COUNT 9.1 K/mm3 (4.0-10.0)
--- NOTE | 2018-12-20 08:48 | PN ---
Progress Note (short form) - Note Progress Note: PATIENT STABLE WILL NEED F/U IN 2-3 DAYS FOR LABS AT MY OFFICE STABLE FOR DISCHARGE PO ABX FOR 7 DAYS
[2018-12-20] MEDS ORDERED: DEXTROSE 5%-WATER 100 ML IVPB ONE (09:37)
[2018-12-20] MEDS ORDERED: PT OWN MED DRAWER 7, Y5N ONE (09:37)
[2018-12-20 10:52] VITALS: BP 126/72; PULSE 84; TEMP 98.1
--- NOTE | 2018-12-20 16:48 | PATH ---
Surgical Pathology Report Patient Name: TYLER ADAM [facility]. Rec. #: [id number] /Age/Gender: 1970 (Age: 48) / F Account: [id number] Location: [address] [place] [address] Taken: 12/16/2018 Received: 12/19/2018 Reported: 12/20/2018 Physicians: Rosa Cabral M.D. Specimen(s) Received APPENDIX Clinical History Acute appendicitis Final Diagnosis APPENDIX, APPENDECTOMY: SEVERE ACUTE APPENDICITIS AND PERIAPPENDICITIS. Electronically Signed Alberto Ferguson M.D. Gross Description Received in formalin, labeled "appendix," is a 7.5 cm. in length vermiform appendix with a stapled margin of resection and moderate attached fat. The serosa is barragan-ruano with attached exudate. Sectioning reveals a dilated lumen containing brown fecal material. The wall of the appendix averages 0.1 cm. in thickness. Wares Sorter sections are submitted in one cassette. /12/19/2018 [facility]12/19/2018
--- NOTE | 2018-12-27 14:52 | OP ---
DATE OF OPERATION: 12/16/2018 PREOPERATIVE DIAGNOSIS: Acute on chronic appendicitis with fecalith. POSTOPERATIVE DIAGNOSIS: Acute on chronic appendicitis with fecalith. PROCEDURE: Laparoscopic appendectomy. ATTENDING SURGEON: Horacio Conde MD PILLOW AGENT: No one. ANESTHESIA: Lester Mcdaniel CRNA ANESTHESIA TYPE: General with local, local consisted of 0.5% Marcaine, a total of 10 mL given at the port sites. ESTIMATED BLOOD LOSS: 10 mL. IV FLUID ADMINISTERED: 1200 mL. DRAINS: A Martinez drained 430 mL of clear urine. Martinez was removed postoperatively. SPECIMEN: Appendix with fecalith, it was necrotic. BRIEF FINDINGS: Patient had a necrotic appendix with a fecalith, what was recovered, stapled at the base at the termination of the taeniae. INDICATION: The patient is a 48-year-old female presenting with right lower quadrant pain on the order of 1-1/2 weeks. She was counseled regarding risks, benefits, and alternatives, including formation of intraabdominal abscess, given the protracted course of her presentation. She was counseled regarding risks, benefits, and alternatives, signed informed consent, and was taken for procedure. PROCEDURE: The patient was brought to the operating room, placed in supine position on the operating table. The lower extremities had SCDs placed to compression. She was induced with general anesthesia. She was endotracheally intubated without incident by Anesthesia. She received intravenous antibiotics broad-spectrum in the emergency department, given her presentation and history. The imaging was also available. We began first with a supraumbilical approach to the umbilicus for Jaz entry into the abdomen. Incised with a 15 blade scalpel, deepened and widened through subcutaneous tissue with Bovie cautery down to the abdominal fascia, which was elevated. A 12-mm Jaz port was then installed into the abdomen after a blunt entry was made with a clamp, and a omkiek-[id number] was laid in with an 0 Vicryl for ablation of the port site. Once the pneumoperitoneum was established, we inspected the abdominal viscera with the patient in a steep Trendelenburg. Care was taken to retract the bowel that draped over the site. At the end of the cecum, the taeniae coli was then followed to its termination at the base of the appendix, and once the base of the appendix could be identified, a plane was developed with the [place] dissector. This was after port sites were established, 5-mm trocar sites, at the supraumbilical position as well as the left lower quadrant. Care was then taken to staple the base of the appendix using a purple load Endo PRICILA 45 mm. Once done, the appendix was then dissected from the remaining surrounding tissue. The appendix did appear necrotic at the tip, where a fecalith was present and could not be contained. There was a small amount of fecalized peritoneal contamination. This was limited. The EndoCatch bag was then used to retrieve the appendix from the abdomen with the remainder of the adjacent dirty fat. The area was then irrigated with sterile irrigation in a volume of approximately 300 mL limited, and suctioned from both the paracolic gutter on the right as well as the pelvis. Once retrieved, the specimen was sent off for final pathologic diagnosis. The patient was then returned to a level position and the abdominal viscera was returned to its [place] state. The laparoscope was removed after removing the other trocars under direct visualization. The patient was awoken from general anesthesia after we tied the umbilical port and closed the skin with 4-0 Vicryl in subcuticular fashion at each port site. Instrument counts were correct. The patient was stable throughout the procedure, tolerated procedure well. Dermabond was placed as the dressing. MD DEBORAH Cabral/[id number]
== END 2018-12-20 11:31 | disposition home or self-care (01) | DRG 343 ==
LOC: FER 01:31 → J6S 08:11
PROVIDERS: ADMIT Internal Medicine; ATTEND Family Medicine
PROC: 0DTJ4ZZ Resection of Appendix, Percutaneous Endoscopic Approach (ICD-10-PCS; principal; 2018-12-16 15:00)
DX: K35.80 Unspecified acute appendicitis (principal); E66.9 Obesity, unspecified; K59.00 Constipation, unspecified; D35.00 Benign neoplasm of unspecified adrenal gland; Z88.0 Allergy status to penicillin; D72.829 Elevated white blood cell count, unspecified; Z68.33 Body mass index [BMI] 33.0-33.9, adult
CPT/HCPCS: 36415; 71045-TC-FY; 74176-TC; 80053; 81003; 81025; 82962; 84436; 84443; 85025; 86850; 86900; 86901; 87040; 87086; 88304-TC; 93005; 94760; 97116-GP; 97161-GP; 99284-25; J0131; J7030

== ENCOUNTER 2019-06-02 16:53 | Emergency (ER) | payer BC ==
[2019-06-02 17:04] VITALS: BP 97/66; PULSE 103; TEMP 99.3; BMI 28.3
[2019-06-02 17:51] LABS: HEMATOCRIT 29.4 % (32.4-45.2); HEMOGLOBIN 9.1 GM/dl (10.7-15.3); MCHC 30.9 g/dl (32.0-36.0); MEAN CELL VOLUME 59.2 fl (80-96); MEAN PLT VOLUME 7.9 fl (7.5-11.1); PLATELET COUNT 371 K/MM3 (134-434); RBC 4.97 M/mm3 (3.60-5.2); RDW 18.1 % (11.6-15.6); WHITE BLOOD COUNT 24.5 K/mm3 (4.0-10.8)
[2019-06-02 17:52] LABS: MCH 18.3 pg (25.7-33.7)
[2019-06-02 18:06] LABS: ALBUMIN 3.2 g/dl (3.4-5.0); BILIRUBIN,TOTAL 0.5 mg/dl (0.2-1); CALCIUM 8.2 mg/dl (8.5-10); POTASSIUM 3.7 mmol/L (3.5-5.1); TOT PROT 6.8 g/dl (6.4-8.2)
[2019-06-02 18:06] LABS: EPITHELIAL CELLS FEW /hpf
--- NOTE | 2019-06-02 19:09 | PDOC ---
Documentation entered by Nico Vora SCRIBE, acting as scribe for Maira Watt MD. Maira Watt MD: This documentation has been prepared by the Diony alcaraz Daniel, SCRIBE, under my direction and personally reviewed by me in its entirety. I confirm that the documentation accurately reflects all work, treatment, procedures, and medical decision making performed by me. History of Present Illness - General Chief Complaint: Pain Stated Complaint: RT LOWER BACK PAIN History Source: Patient Exam Limitations: No Limitations - History of Present Illness Initial Comments: 06/02/19 17:28 The patient is a 49 year old female with a past medical history of appendectomy (12/30) here today for evaluation of lower back pain. The patient reports that she has had lower right sided back pain since wednesday (05/21/19) and saw her PCP who told her to use a heating pad. She states that her pain got worse on wednesday (05/28/19) and describes it as constant, pressure like, and notes associated subjective fever, and diaphoresis at night. She states that her pain got slightly better after a massage today. She denies any heavy lifting or trauma. Patient denies headache, lightheadedness. Denies fever, chills. Denies chest pain, shortness of breath. Denies nausea, vomiting, diarrhea, abdominal pain. Allergies: penicillins PCP: neha Past History - Past Medical History Allergies/Adverse Reactions: Allergies Allergy/AdvReac Type Severity Reaction Status Date / Time Penicillins Allergy Mild Itching Verified 06/02/19 16:54 Home Medications: Ambulatory Orders Bifidobacterium Infantis [Align] 10.5 mg PO DAILY #30 tab.chew 06/02/19 Phenazopyridine HCl [Pyridium] 100 mg PO TID #6 tablet 06/02/19 levoFLOXacin [Levaquin -] 500 mg PO DAILY #7 tablet 06/02/19 Cancer: No COPD: No Disorders: Yes (uti) Thyroid Disease: No - Immunization History Td Vaccination: Yes - Psycho Social/Smoking Cessation Hx Smoking Status: No Smoking History: Never smoked Have you smoked in the past 12 months: No Number of Cigarettes Smoked Daily: 0 Cigars Per Day: 0 Hx Alcohol Use: No Drug/Substance Use Hx: No Substance Use Type: None Hx Substance Use Treatment: No Review of Systems - Review of Systems Able to Perform ROS?: Yes Comments:: 06/02/19 17:28 GENERAL/CONSTITUTIONAL: No fever or chills. No weakness. HEAD, EYES, EARS, NOSE AND THROAT: No change in vision. No ear pain or discharge. No sore throat. CARDIOVASCULAR: No chest pain or shortness of breath. RESPIRATORY: No cough, wheezing, or hemoptysis. GASTROINTESTINAL: No nausea, vomiting, diarrhea or constipation. GENITOURINARY: No dysuria, frequency, or change in urination. MUSCULOSKELETAL: +back pain. No joint or muscle swelling or pain. No neck pain. SKIN: No rash NEUROLOGIC: No headache, vertigo, loss of consciousness, or change in strength/ sensation. ENDOCRINE: No increased thirst. No abnormal weight change. HEMATOLOGIC/LYMPHATIC: No anemia, easy bleeding, or history of blood clots. ALLERGIC/IMMUNOLOGIC: No hives or skin allergy. *Physical Exam - Vital Signs Last Vital Signs Temp Pulse Resp BP Pulse Ox 99.3 F 103 H 20 97/66 99 06/02/19 16:53 06/02/19 16:53 06/02/19 16:53 06/02/19 16:53 06/02/19 16:53 - Physical Exam 06/02/19 17:29 GENERAL: The patient is in no acute distress. HEAD: Normal with no signs of trauma. EYES: PERRLA, EOMI, sclera anicteric, conjunctiva clear. ENT: Ears normal, nares patent, oropharynx clear without exudates. Moist mucous membranes. NECK: Normal range of motion, supple without lymphadenopathy, JVD, or masses. LUNGS: Breath sounds equal, clear to auscultation bilaterally. No wheezes, and no crackles. HEART:Regular rate and rhythm, normal S1 and S2 without murmur, rub or gallop. ABDOMEN: Soft, nontender, normoactive bowel sounds. No guarding, no rebound. No masses palpable. EXTREMITIES: Normal range of motion, no edema. No clubbing or cyanosis. No erythema, or tenderness. NEUROLOGICAL: Cranial nerves II through XII grossly intact. Normal speech. No focal neurological deficits. MUSCULOSKELETAL: Back non-tender to palpation, no CVA tenderness SKIN: Warm, Dry, normal turgor, no rashes or lesions noted. ED Treatment Course - LABORATORY CBC & Chemistry Diagram: 06/02/19 17:20 06/02/19 17:20 - ADDITIONAL ORDERS Additional order review: Laboratory Results 06/02/19 06/02/19 06/02/19 17:30 17:30 17:20 Sodium 132 L Potassium 3.7 Chloride 100 Carbon Dioxide 24 Anion Gap 8 BUN 17.0 Creatinine 1.0 Est GFR (CKD-EPI)AfAm 75.54 Est GFR (CKD-EPI)NonAf 65.18 Random Glucose 128 H Calcium 8.2 L Total Bilirubin 0.5 AST 23 ALT 29 Alkaline Phosphatase 103 Total Protein 6.8 Albumin 3.2 L Urine Color Yellow Urine Appearance Cloudy Urine pH 5.5 Urine Protein 2+ H Urine Glucose (UA) Negative Urine Ketones Negative Urine Blood 3+ H Urine Nitrite Negative Urine Bilirubin Negative Urine Urobilinogen 1.0 Ur Leukocyte Esterase 1+ Urine RBC 40-60 Urine WBC >100 Ur Transition Epith Cell Few Urine Bacteria Many Urine HCG, Qual Negative 06/02/19 17:20 RBC 4.97 MCV 59.2 L MCHC 30.9 L RDW 18.1 H MPV 7.9 Neutrophils % No Result Required. Lymphocytes % No Result Required. - RADIOLOGY Radiology Studies Ordered: Category Date Time Status SPIRAL- RENAL-STONE CT [CT] Stat CT Scan 06/02/19 17:10 Ordered Medical Decision Making - Medical Decision Making 06/02/19 18:59 Ms Rodriguez is a 49 yo F who presents to the ER with lower back pain R>L Symptoms have been present for the past > 1 week Seen by PMD who thought this was likely musculoskeletal Pt asked to take motrin Pt pain has been persistent She went for a massage today with minimal relief ? sweats No vomiting No diarrhea No trauma No dysuria DD: Musculoskeletal pain, Kidney stone, Pyelonephritis Will do Labs Spiral CT IVF Tylenol for pain Re 06/03/19 10:29 Laboratory Tests 06/02/19 06/02/19 06/02/19 17:20 17:20 17:30 WBC 24.5 H Hgb 9.1 L Hct 29.4 L Plt Count 371 Neutrophils % (Manual) 91.0 H* BUN 17.0 Creatinine 1.0 Urine Nitrite Negative Ur Leukocyte Esterase 1+ Urine RBC 40-60 Urine WBC >100 CT abd and pelvis pending Signed out to Dr. Matthews Dispo pending imaging Clinical impression: pyelonephritis, initial presentation Discharge - Discharge Information Problems reviewed: Yes Clinical Impression/Diagnosis: Pyelonephritis Condition: Stable Disposition: HOME - Admission No - Additional Discharge Information Prescriptions: Bifidobacterium Infantis [Align] 10.5 mg PO DAILY #30 tab.chew levoFLOXacin [Levaquin -] 500 mg PO DAILY #7 tablet Phenazopyridine HCl [Pyridium] 100 mg PO TID #6 tablet - Follow up/Referral - Patient Discharge Instructions Patient Printed Discharge Instructions: DI for Kidney Infection Additional Instructions: Ms Rodriguez Thank you for coming in to the ER today It appears that you have a serious Urinary tract infection and possibly a kidney infection Please take antibiotics as prescribed I have also sent pyridium and a probiotic to your pharmacy Please take these as well Please monitor yourself for fevers, chills, weakness any other concerns or complaints If you notice these things , please come back to the ER to see us! Please also follow up with your primary care physician within 2-3 days - Post Discharge Activity
[2019-06-02] MEDS ORDERED: KETOROLAC TROMETHAMINE 30 MG/1 ML VIAL IVPUSH ONE (20:56)
[2019-06-02] MEDS ORDERED: KETOROLAC TROMETHAMINE 30 MG/1 ML VIAL ONE (20:58)
[2019-06-02 21:57] LABS: ANISOCYTOSIS 1+; PLATELET ESTIMATE SLT INCREASE
== END 2019-06-02 21:18 | disposition home or self-care (01) ==
LOC: FER 16:53
PROC: 3E03329 Introduction of Other Anti-infective into Peripheral Vein, Percutaneous Approach (ICD-10-PCS; principal; 2019-06-02)
PROC: 3E0333Z Introduction of Anti-inflammatory into Peripheral Vein, Percutaneous Approach (ICD-10-PCS; 2019-06-02)
DX: N10 Acute pyelonephritis (principal); Z88.0 Allergy status to penicillin
CPT/HCPCS: 36415; 74176-TC; 80053; 81003; 81015; 84703; 85025; 87086; 87186; 99283-25

== ENCOUNTER 2021-07-28 04:28 | Day surgery (SDC) | payer BC ==
[2021-07-25 08:36] VITALS: BMI 28.3
[2021-07-28] MEDS ORDERED: LIDOCAINE HCL 1%, 10 MG/ML (20ML VIAL) ONE (09:38)
[2021-07-28] MEDS ORDERED: BUPIVACAINE HCL/PF 0.5% (5MG/ML) 10 ML VIAL ONE (09:38)
[2021-07-28] MEDS ORDERED: MIDAZOLAM HCL 2 MG/2 ML SINGLE DOSE VIAL ONE (09:51)
[2021-07-28] MEDS ORDERED: PROPOFOL 20 ML ONE ×3 (09:51→10:19)
[2021-07-28] MEDS ORDERED: ceFAZolin SODIUM 1 GM VIAL IVPB ONE (10:15)
[2021-07-28] MEDS ORDERED: BUPIVACAINE HCL/PF 0.5% (5MG/ML) 10 ML VIAL NR ONE ×2 (10:21)
[2021-07-28] MEDS ORDERED: LIDOCAINE HCL 1%, 10 MG/ML (20ML VIAL) NR ONE ×2 (10:21)
[2021-07-28 14:07] VITALS: BP 121/70; PULSE 70; TEMP 98
== END 2021-07-28 14:05 | disposition home or self-care (01) ==
LOC: JASU-SURG 04:28
PROVIDERS: ATTEND Orthopaedic Surgery
PROC: 0JNJ0ZZ Release Right Hand Subcutaneous Tissue and Fascia, Open Approach (ICD-10-PCS; principal; 2021-07-28 10:00)
DX: M72.0 Palmar fascial fibromatosis [Dupuytren] (principal)
CPT/HCPCS: 81025; 88304-TC

== ENCOUNTER 2024-01-29 21:35 | Emergency (ER) | payer BC ==
[2024-01-29 21:54] VITALS: BP 132/90; PULSE 68; RESP 19; TEMP 97.5; BMI 33.0
[2024-01-29 22:17] LABS: HEMATOCRIT 46.2 % (32.4-45.2); HEMOGLOBIN 14.2 G/dL (10.7-15.3); MCH 22.3 pg (25.7-33.7); MCHC 30.6 g/dl (32.0-36.0); MEAN CELL VOLUME 72.8 fl (80-96); MEAN PLT VOLUME 7.7 fl (7.5-11.1); PLATELET COUNT 233.2 10^3/uL (134-434); RBC 6.34 10^6/uL (3.60-5.2); RDW 18.3 % (11.6-15.6); WHITE BLOOD COUNT 10.2 10^3/uL (4.0-10.8)
[2024-01-29 22:27] LABS: ALBUMIN 4.1 g/dl (3.4-5.0); BILIRUBIN,TOTAL 0.4 mg/dl (0.2-1); CALCIUM 9.2 mg/dl (8.5-10.1); POTASSIUM 3.6 mmol/L (3.5-5.1); TOT PROT 6.4 g/dl (6.4-8.2)
[2024-01-29 22:32] LABS: PLATELET ESTIMATE ADEQUATE
== END 2024-01-30 00:19 | disposition home or self-care (01) ==
LOC: FER 21:35
DX: K80.20 Calculus of gallbladder without cholecystitis without obstruction (principal); K59.00 Constipation, unspecified; R10.84 Generalized abdominal pain; R11.0 Nausea
CPT/HCPCS: 36415; 74177-TC; 80053; 81003; 84484; 85027; 93005; 93010; 99285-25; Q9967